=== PATIENT | female | born 1985 | race American Indian/Alaskan Native ===

== ENCOUNTER 2016-10-11 08:47 | Emergency (ER) | payer SELFPAY ==
[2016-10-11 09:49] VITALS: BP 126/86
--- NOTE | 2016-10-11 12:20 | Emergency Department Report ---
ED ENT HPI - General Chief complaint: Sore Throat Stated complaint: sore throat Time Seen by Provider: 10/11/16 11:52 Source: patient Mode of arrival: Ambulatory Limitations: No Limitations - History of Present Illness Initial comments: PT c/o sore throat x three days. PT also c/o R ear pain, tongue irritation and cough. PT also states she missed court today so she would like documentation that shows that she was sick. PT states she took tylenol this morning at 0200 without relief of symptoms. complaint: sore throat Onset/Timin -: Gradual, days(s) Location: R ear, tongue, throat Severity: severe Severity scale (0 -10): 10 Quality: constant Consistency: constant Improves with: none Worsens with: swallowing, eating, other (talking ) Associated Symptoms: fever, cough, pain with swallowing, sore throat. denies: discharge from ear, rhinorrhea - Related Data Previous Rx's Medication Instructions Recorded Last Taken Type Amoxicillin 500 mg PO BID #20 capsule 10/11/16 Unknown Rx Benzonatate [Tessalon Perles] 100 mg PO Q8HR PRN #12 capsule 10/11/16 Unknown Rx Ibuprofen [Motrin] 600 mg PO Q8H PRN #15 tablet 10/11/16 Unknown Rx Allergies Allergy/AdvReac Type Severity Reaction Status Date / Time No Known Allergies Allergy Verified 10/11/16 09:43 ED Dental HPI - General Chief complaint: Sore Throat Stated complaint: TONGUE SWOLLEN Time Seen by Provider: 10/11/16 11:52 Source: patient Mode of arrival: Ambulatory Limitations: No Limitations - Related Data Previous Rx's Medication Instructions Recorded Last Taken Type Amoxicillin 500 mg PO BID #20 capsule 10/11/16 Unknown Rx Benzonatate [Tessalon Perles] 100 mg PO Q8HR PRN #12 capsule 10/11/16 Unknown Rx Ibuprofen [Motrin] 600 mg PO Q8H PRN #15 tablet 10/11/16 Unknown Rx Allergies Allergy/AdvReac Type Severity Reaction Status Date / Time No Known Allergies Allergy Verified 10/11/16 09:43 ED Review of Systems ROS: Stated complaint: TONGUE SWOLLEN Other details as noted in HPI Comment: All other systems reviewed and negative Constitutional: chills, malaise. denies: fever ENT: throat pain Respiratory: cough. denies: SOB with exertion Gastrointestinal: nausea. denies: abdominal pain, vomiting, diarrhea Musculoskeletal: myalgia ED Past Medical Hx - Past Medical History Hx GERD: Yes Hx Asthma: Yes Additional medical history: Vaginal delivery x 3 - Surgical History Hx Cholecystectomy: Yes - Social History Smoking Status: Current Every Day Smoker Substance Use Type: None - Medications Home Medications: Home Medications Medication Instructions Recorded Confirmed Last Taken Type Amoxicillin 500 mg PO BID #20 capsule 10/11/16 Unknown Rx Benzonatate [Tessalon Perles] 100 mg PO Q8HR PRN #12 capsule 10/11/16 Unknown Rx Ibuprofen [Motrin] 600 mg PO Q8H PRN #15 tablet 10/11/16 Unknown Rx ED Physical Exam - General Limitations: No Limitations General appearance: alert, in no apparent distress - Head Head exam: Present: atraumatic, normocephalic, normal inspection - Eye Eye exam: Present: normal appearance. Absent: conjunctival injection - ENT ENT exam: Present: mucous membranes moist, normal external ear exam - Expanded ENT Exam Expanded TM/Canal exam: Erythema: Left TM, Loss of Landmarks: Left TM Mouth exam: Present: normal external inspection. Absent: drooling, trismus Throat exam: Positive: tonsillar erythema, tonsillomegaly, other (clear post nasal drainage. ). Negative: tonsillar exudate, R peritonsillar mass, L peritonsillar mass - Neck Neck exam: Present: normal inspection. Absent: tenderness - Respiratory Respiratory exam: Present: normal lung sounds bilaterally. Absent: respiratory distress, wheezes - Cardiovascular Cardiovascular Exam: Present: regular rate, normal rhythm, normal heart sounds - GI/Abdominal GI/Abdominal exam: Present: soft. Absent: tenderness, guarding, rebound - Extremities Exam Extremities exam: Present: normal inspection, full ROM - Back Exam Back exam: Present: normal inspection, full ROM. Absent: tenderness, CVA tenderness (R), CVA tenderness (L), muscle spasm - Neurological Exam Neurological exam: Present: alert, oriented X3 - Psychiatric Psychiatric exam: Present: normal affect, normal mood - Skin Skin exam: Present: warm, dry, intact ED Course Vital Signs 10/11/16 09:46 Temperature 98.3 F Pulse Rate 95 H Respiratory 17 Rate Blood Pressure 126/86 O2 Sat by Pulse 100 Oximetry - Reevaluation(s) Reevaluation #1: 04/03/17 12:23 PT aware of dx and plan of care. PT has no questions at this time. - Pulse Oximetry Interpretation Digit-Finger Initial Pulse Oximetry Readin Actions Taken: none ED Medical Decision Making - Differential Diagnosis strep phayrngitis, uri, om Critical care attestation.: If time is entered above; I have spent that time in minutes in the direct care of this critically ill patient, excluding procedure time. ED Disposition Clinical Impression: Otalgia of right ear, Left otitis media with effusion Pharyngitis Qualifiers: Pharyngitis/tonsillitis etiology: unspecified etiology Qualified Code(s): J02.9 - Acute pharyngitis, unspecified Disposition: DISCHARGED TO HOME OR SELFCARE Is pt being admited?: No Does the pt Need Aspirin: No Condition: Stable Instructions: Pharyngitis (ED), Tonsillitis (ED) Prescriptions: Amoxicillin 500 mg PO BID #20 capsule Benzonatate [Tessalon Perles] 100 mg PO Q8HR PRN #12 capsule PRN Reason: Cough Ibuprofen [Motrin] 600 mg PO Q8H PRN #15 tablet PRN Reason: Pain Referrals: PRIMARY CARE, [Primary Care Provider] - 3-5 Days Forms: Work/School Release Form(ED) Time of Disposition: 12:28
== END 2016-10-11 12:30 | disposition home or self-care (01) ==
LOC: ED 08:47
DX: H65.92 Unspecified nonsuppurative otitis media, left ear (principal); H92.01 Otalgia, right ear; J02.9 Acute pharyngitis, unspecified; K21.9 Gastro-esophageal reflux disease without esophagitis; J45.909 Unspecified asthma, uncomplicated; F17.200 Nicotine dependence, unspecified, uncomplicated
CPT/HCPCS: 99282

== ENCOUNTER 2016-11-22 08:13 | Emergency (ER) | payer SELFPAY ==
[2016-11-22 09:12] LABS: Bacteria,Urine 1+ /HPF (Negative); Bilirubin,Urine NEG (Negative); Blood,Urine NEG (Negative); Ketones,Urine TR mg/dL (Negative); Leukocyte Esterase,Urine NEG (Negative); Mucus,Urine 3+ /HPF; Nitrite,Urine NEG (Negative)
[2016-11-22] MEDS ORDERED: MOTRIN PO ONE (13:37)
--- NOTE | 2016-11-22 14:49 | Emergency Department Report ---
ED General Adult HPI - General Chief complaint: Urogenital-Female Stated complaint: PELVIC PAIN Time Seen by Provider: 11/22/16 13:35 Source: patient Mode of arrival: Ambulatory Limitations: No Limitations - History of Present Illness Initial comments: 31-year-old female presents to the ED complaining about pelvic pain currently on her menstrual cycle. Patient also states that she has having a vaginal odor but denies concern for STD such as chlamydia or gonorrhea. Patient denies fever , nausea, vomiting, diarrhea. Severity scale (0 -10): 7 - Related Data Previous Rx's Medication Instructions Recorded Last Taken Type Amoxicillin 500 mg PO BID #20 capsule 10/11/16 Unknown Rx Benzonatate [Tessalon Perles] 100 mg PO Q8HR PRN #12 capsule 10/11/16 Unknown Rx Ibuprofen [Motrin] 600 mg PO Q8H PRN #15 tablet 10/11/16 Unknown Rx Naproxen [Naprosyn TAB] 500 mg PO BID #30 tablet 11/22/16 Unknown Rx metroNIDAZOLE [Flagyl TAB] 500 mg PO Q12HR #14 tab 11/22/16 Unknown Rx Allergies Allergy/AdvReac Type Severity Reaction Status Date / Time No Known Allergies Allergy Verified 10/11/16 09:43 ED Review of Systems ROS: Stated complaint: PELVIC PAIN Other details as noted in HPI Constitutional: denies: chills, fever Eyes: denies: eye pain, eye discharge, vision change ENT: denies: ear pain, throat pain Respiratory: denies: cough, shortness of breath, wheezing Cardiovascular: denies: chest pain, palpitations Endocrine: no symptoms reported Gastrointestinal: denies: abdominal pain, nausea, diarrhea Genitourinary: discharge, other (pelvic pain). denies: urgency, dysuria Musculoskeletal: denies: back pain, joint swelling, arthralgia Skin: denies: rash, lesions Neurological: denies: headache, weakness, paresthesias Psychiatric: denies: anxiety, depression Hematological/Lymphatic: denies: easy bleeding, easy bruising ED Past Medical Hx - Past Medical History Hx GERD: Yes Hx Asthma: Yes Additional medical history: Vaginal delivery x 3 - Surgical History Hx Cholecystectomy: Yes - Social History Smoking Status: Current Every Day Smoker Substance Use Type: None - Medications Home Medications: Home Medications Medication Instructions Recorded Confirmed Last Taken Type Amoxicillin 500 mg PO BID #20 capsule 10/11/16 Unknown Rx Benzonatate [Tessalon Perles] 100 mg PO Q8HR PRN #12 capsule 10/11/16 Unknown Rx Ibuprofen [Motrin] 600 mg PO Q8H PRN #15 tablet 10/11/16 Unknown Rx Naproxen [Naprosyn TAB] 500 mg PO BID #30 tablet 11/22/16 Unknown Rx metroNIDAZOLE [Flagyl TAB] 500 mg PO Q12HR #14 tab 11/22/16 Unknown Rx ED Physical Exam - General Limitations: No Limitations General appearance: alert, in no apparent distress - Head Head exam: Present: atraumatic, normocephalic - Eye Eye exam: Present: normal appearance - ENT ENT exam: Present: mucous membranes moist - Neck Neck exam: Present: normal inspection - Respiratory Respiratory exam: Present: normal lung sounds bilaterally. Absent: respiratory distress - Cardiovascular Cardiovascular Exam: Present: regular rate, normal rhythm. Absent: systolic murmur, diastolic murmur, rubs, gallop - GI/Abdominal GI/Abdominal exam: Present: soft, normal bowel sounds. Absent: distended, tenderness, guarding - Speculum exam: Present: normal speculum exam. Absent: erythema, vaginal discharge, cervical discharge, vaginal bleeding, foreign body Bi-manual exam: Present: adnexal tenderness. Absent: cervical motion tendernes , adnexal mass, uterine enlargement - Extremities Exam Extremities exam: Present: normal inspection - Back Exam Back exam: Present: normal inspection - Neurological Exam Neurological exam: Present: alert, oriented X3 - Psychiatric Psychiatric exam: Present: normal affect, normal mood - Skin Skin exam: Present: warm, dry, intact, normal color. Absent: rash ED Course Vital Signs 11/22/16 11/22/16 08:35 14:41 Temperature 98.2 F Pulse Rate 95 H Respiratory 17 18 Rate Blood Pressure 119/76 O2 Sat by Pulse 98 Oximetry ED Medical Decision Making - Lab Data Vital Signs 11/22/16 11/22/16 08:35 14:41 Temperature 98.2 F Pulse Rate 95 H Respiratory 17 18 Rate Blood Pressure 119/76 O2 Sat by Pulse 98 Oximetry Laboratory Results - last 24 hr 11/22/16 11/22/16 08:44 08:52 HCG, Qual Negative Urine Color Yellow Urine Turbidity Clear Urine pH 5.0 Ur Specific [place] 1.031 H Urine Protein 30 mg/dl Urine Glucose (UA) Neg Urine Ketones Tr Urine Blood Neg Urine Nitrite Neg Ur Reducing Substances Not Reportable Urine Bilirubin Neg Urine Ictotest Not Reportable Urine Urobilinogen 2.0 Ur Leukocyte Esterase Neg Urine WBC (Auto) 1.0 Urine RBC (Auto) 1.0 U Epithel Cells (Auto) 5.0 Urine Bacteria (Auto) 1+ Urine Mucus 3+ Urine HCG, Qual Negative - Medical Decision Making Patient is resting comfortably at this time. States that she has no concern for chlamydia or gonorrhea in which not to have medication here. Her pelvic exam was unremarkable and her urine is clean. 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 ED Disposition Clinical Impression: Dysmenorrhea, Vaginal odor, Vaginal discomfort Disposition: DISCHARGED TO HOME OR SELFCARE Is pt being admited?: No Does the pt Need Aspirin: No Condition: Good Instructions: Dysmenorrhea (ED) Additional Instructions: take medication as prescribed and follow up with your obgyn. Prescriptions: metroNIDAZOLE [Flagyl TAB] 500 mg PO Q12HR #14 tab Naproxen [Naprosyn TAB] 500 mg PO BID #30 tablet Referrals: PRIMARY CARE, [Primary Care Provider] - 3-5 Days Forms: Work/School Release Form(ED) Time of Disposition: 14:48
[2016-11-22 15:11] VITALS: BP 118/76
== END 2016-11-22 15:11 | disposition home or self-care (01) ==
LOC: ED 08:13
DX: N94.6 Dysmenorrhea, unspecified (principal); K21.9 Gastro-esophageal reflux disease without esophagitis; J45.909 Unspecified asthma, uncomplicated; F17.200 Nicotine dependence, unspecified, uncomplicated
CPT/HCPCS: 36415; 81001; 81025; 84703; 87210; 87591; 99284

== ENCOUNTER 2017-03-12 02:59 | Emergency (ER) | payer SELFPAY ==
[2017-03-12 03:38] LABS: Basophils % (Auto) 0.5 % (0.0-1.8); Eosinophils % (Auto) 0.5 % (0.0-4.3); Hematocrit 37.4 % (30.3-42.9); Hemoglobin 11.8 gm/dl (10.1-14.3); Mean Corpuscular HGB Conc 32 % (30-34); Mean Corpuscular Volume 72 fl (79-97); Platelet Count 247 K/mm3 (140-440); Red Blood Count 5.21 M/mm3 (3.65-5.03); Red Cell Distribution Width 16.8 % (13.2-15.2); White Blood Count 10.4 K/mm3 (4.5-11.0)
[2017-03-12 04:01] LABS: Mean Corpuscular Hemoglobin 23 pg (28-32)
[2017-03-12 04:08] LABS: Alanine Aminotransferase 6 units/L (7-56); Albumin 4.3 g/dL (3.9-5); Albumin/Globulin Ratio 1.3 %; Alkaline Phosphatase 82 units/L (35-129); Anion Gap 17 mmol/L; BUN/Creatinine Ratio 8.75; Blood Urea Nitrogen 7 mg/dL (7-17); Calcium 9.3 mg/dL (8.4-10.2); Carbon Dioxide 26 mmol/L (22-30); Chloride 103.5 mmol/L (98-107); Glucose 93 mg/dL (65-100); Lipase 29 units/L (13-60); Potassium 3.1 mmol/L (3.6-5.0); Sodium 143 mmol/L (137-145); Total Protein 7.6 g/dL (6.3-8.2)
[2017-03-12 04:15] LABS: Bacteria,Urine 3+ /HPF (Negative); Bilirubin,Urine NEG (Negative); Blood,Urine LG (Negative); Ketones,Urine NEG (Negative); Leukocyte Esterase,Urine LG (Negative); Mucus,Urine 1+ /HPF; Nitrite,Urine POS (Negative); Urobilinogen,Urine < 2.0 mg/dL (<2.0)
--- NOTE | 2017-03-12 04:24 | Ultrasound Report ---
FINAL REPORT PROCEDURE: US OB \T\lt; = 14 WEEKS FETUS TECHNIQUE: Real-time transabdominal and transvaginal sonography of the uterus, placenta, amniotic fluid, adnexa, and fetus was performed with image documentation. Measurements were obtained to determine age/size. M-mode Doppler was used to document heartbeat. CPT 65060 and 21886 HISTORY: preg, abd pain COMPARISON: No prior studies are available for comparison. FINDINGS: The uterus size is 10.2 x 6 x 6.4 centimeters. The endometrium is slightly thickened at 13 millimeters. There is no evidence of a gestational sac. The right ovary size is 3.4 x 2.4 x 2 centimeters. There is a dominant cyst on the right ovary this measures 19 millimeters. The left ovary is not visualized. There is a fibroid measuring 3.4 centimeters identified in the lateral aspect of the uterus. The findings may indicate multiple etiologies including early or failure. Ectopic is not excluded on the basis of this study. Follow-up examination should include serial beta HCG levels and repeat ultrasound according to clinical findings. IMPRESSION: There is no evidence of a gestational sac on this study. The findings may indicate multiple etiologies including early or failure. Followup studies should be entertained and could include serial beta HCG levels and perhaps repeat ultrasound.
[2017-03-12 04:33] LABS: RBC,Urine > 182.0 /HPF (0.0-6.0); WBC,Urine > 182.0 /HPF (0.0-6.0)
--- NOTE | 2017-03-12 04:38 | Ultrasound Report ---
FINAL REPORT PROCEDURE: Obstetrical ultrasound, transabdominal and transvaginal TECHNIQUE: Real-time transabdominal and transvaginal sonography of the uterus, placenta, amniotic fluid, adnexa, and fetus was performed with image documentation. Measurements were obtained to determine age/size. M-mode Doppler was used to document heartbeat. CPT 52722 and 68777 HISTORY: preg, abd pain COMPARISON: No prior studies are available for comparison. FINDINGS: The uterus size is 10.2 x 6 x 6.4 centimeters. The endometrium is slightly thickened at 13 millimeters. There is no evidence of a gestational sac. The right ovary size is 3.4 x 2.4 x 2 centimeters. There is a dominant cyst on the right ovary this measures 19 millimeters. The left ovary is not visualized. There is a fibroid measuring 3.4 centimeters identified in the lateral aspect of the uterus. The findings may indicate multiple etiologies including early or failure. Ectopic is not excluded on the basis of this study. Follow-up examination should include serial beta HCG levels and repeat ultrasound according to clinical findings. IMPRESSION: There is no idence of a gestational sac on this study. The findings may indicate multiple etiologies including early or failure. Followup studies should be entertained and could include serial beta HCG levels and perhaps repeat ultrasound.
[2017-03-12] MEDS ORDERED: MACROBID PO ONE (06:15)
[2017-03-12] MEDS ORDERED: K-DUR PO ONE (06:16)
[2017-03-12] MEDS ORDERED: TORADOL IM ONE (06:25)
[2017-03-12] MEDS ORDERED: ULTRAM PO ONE (06:25)
--- NOTE | 2017-03-12 07:16 | Emergency Department Report ---
ED Abdominal Pain HPI - General Chief Complaint: Abdominal Pain Stated Complaint: ABD PAIN/12 WKS PREG Time Seen by Provider: 03/12/17 06:14 Source: patient Mode of arrival: Ambulatory Limitations: No Limitations - History of Present Illness Initial Comments: 32-year-old female with a past medical history of asthma, GERD, and previous cholecystectomy presents to the hospital with complaints of abdominal pain since last night. Pain is the right lower quadrant, stabbing and cramping, intermittent and caused a palpation and movement. Pain is worse with palpation and movement. No alleviating factors reported. Positive associated dysuria, increased frequency, pelvic pressure with urination, and right flank pain. No reports of fever, nausea, vomiting, or vaginal bleeding. Patient reports she passed a mucous plug March 04 and she has been bleeding intermittently febrile her . Positive home test 2-1/2 weeks ago however, patient has not initiated follow-up had an ultrasound confirming . Patient states she is also concerned that she might have a bacterial infection and need Flagyl Severity scale (0 -10): 7 - Related Data Previous Rx's Medication Instructions Recorded Last Taken Type Ibuprofen [Motrin] 800 mg PO Q8HR PRN #30 tablet 03/12/17 Unknown Rx Nitrofurantoin [place]/M-Cryst 100 mg PO Q12HR #14 capsule 03/12/17 Unknown Rx [Macrobid CAP] Ondansetron [Zofran Odt] 4 mg PO Q8HR #20 tab.rapdis 03/12/17 Unknown Rx traMADol [Ultram 50 MG tab] 50 mg PO Q6HR PRN #20 tablet 03/12/17 Unknown Rx Allergies Allergy/AdvReac Type Severity Reaction Status Date / Time No Known Allergies Allergy Verified 03/12/17 04:23 ED Review of Systems ROS: Stated complaint: ABD PAIN/12 WKS PREG Other details as noted in HPI Comment: All other systems reviewed and negative Other: Constitutional: No fevers chills Eyes: No eye pain visual changes ENT: No ear pain or throat pain Neck: Denies pain Respiratory: Denies cough wheezing shortness of breath Cardiovascular: Denies chest pain, palpitations, syncope GI: As per HPI : Denies as per HPI Musculoskeletal: Right flank Skin: Denies rash, lesions, erythema Neurologic: Denies headache, numbness, weakness Psychiatric: Denies suicidal ideation, hallucinations ED Past Medical Hx - Past Medical History Previous Medical History?: Yes Hx GERD: Yes Hx Asthma: Yes Additional medical history: Vaginal delivery x 4 - Surgical History Past Surgical History?: Yes Hx Cholecystectomy: Yes - Social History Smoking Status: Never Smoker Substance Use Type: None - Medications Home Medications: Home Medications Medication Instructions Recorded Confirmed Last Taken Type Ibuprofen [Motrin] 800 mg PO Q8HR PRN #30 tablet 03/12/17 Unknown Rx Nitrofurantoin [place]/M-Cryst 100 mg PO Q12HR #14 capsule 03/12/17 Unknown Rx [Macrobid CAP] Ondansetron [Zofran Odt] 4 mg PO Q8HR #20 tab.rapdis 03/12/17 Unknown Rx traMADol [Ultram 50 MG tab] 50 mg PO Q6HR PRN #20 tablet 03/12/17 Unknown Rx ED Physical Exam - General Limitations: No Limitations - Other Other exam information: General: No limitations, patient is alert in no acute distress Head exam: Atraumatic, normocephalic Eyes exam: Normal appearance ENT: Moist mucous membrane, normal oropharynx Neck exam: Normal inspection, full range of motion, no meningismus nontender Respiratory exam: Clear to auscultation bilateral, no wheezes, rales, crackles Cardiovascular: Normal rate and rhythm, normal heart sounds Abdomen: Soft, nondistended, right lower quadrant and suprapubic tenderness,, with normal bowel sounds, no rebound, or guarding : No CMT or adnexal tenderness, no vaginal discharge Extremity: Full range of motion normal inspection no deformity Back: Normal Inspection, full range of motion, my flank tenderness Neurologic: Alert, oriented x3, cranial nerves intact, no motor or sensory deficit Psychiatric: normal affect, normal mood Skin: Warm, dry, intact ED Course Vital Signs 03/12/17 03/12/17 03/12/17 03:08 03:35 06:47 Temperature 98.4 F 98.4 F Pulse Rate 100 H 88 85 Respiratory 20 18 20 Rate Blood Pressure 129/83 Blood Pressure 116/77 115/70 [Left] O2 Sat by Pulse 100 100 Oximetry 03/12/17 07:15 Temperature 98.4 F Pulse Rate 85 Respiratory 16 Rate Blood Pressure Blood Pressure 107/71 [Left] O2 Sat by Pulse Oximetry - Reevaluation(s) Reevaluation #1: 03/12/17 07:17 Meds given Pain meds: Tramadol and Toradol UTI: Macrobid Hypokalemia: and KCl 40 mEq by mouth ED Medical Decision Making - Lab Data Result diagrams: 03/12/17 03:29 03/12/17 03:29 Lab Results 03/12/17 03/12/17 03/12/17 Range/Units 03:29 03:29 03:29 WBC 10.4 (4.5-11.0) K/mm3 RBC 5.21 H (3.65-5.03) M/mm3 Hgb 11.8 (10.1-14.3) gm/dl Hct 37.4 (30.3-42.9) % MCV 72 L (79-97) fl MCH 23 L (28-32) pg MCHC 32 (30-34) % RDW 16.8 H (13.2-15.2) % Plt Count 247 (140-440) K/mm3 Lymph % (Auto) 17.3 (13.4-35.0) % [place] % (Auto) 6.7 (0.0-7.3) % Eos % (Auto) 0.5 (0.0-4.3) % Baso % (Auto) 0.5 (0.0-1.8) % Lymph # 1.8 (1.2-5.4) K/mm3 [place] # 0.7 (0.0-0.8) K/mm3 Eos # 0.1 (0.0-0.4) K/mm3 Baso # 0.0 (0.0-0.1) K/mm3 Seg Neutrophils % 75.0 H (40.0-70.0) % Seg Neutrophils # 7.8 H (1.8-7.7) K/mm3 Sodium 143 (137-145) mmol/L Potassium 3.1 L (3.6-5.0) mmol/L Chloride 103.5 (98-107) mmol/L Carbon Dioxide 26 (22-30) mmol/L Anion Gap 17 mmol/L BUN 7 (7-17) mg/dL Creatinine 0.8 (0.7-1.2) mg/dL Estimated GFR > 60 ml/min BUN/Creatinine Ratio 8.75 % Glucose 93 (65-100) mg/dL Calcium 9.3 (8.4-10.2) mg/dL Total Bilirubin 0.20 (0.1-1.2) mg/dL AST 11 (5-40) units/L ALT 6 L (7-56) units/L Alkaline Phosphatase 82 (35-129) units/L Total Protein 7.6 (6.3-8.2) g/dL Albumin 4.3 (3.9-5) g/dL Albumin/Globulin Ratio 1.3 % Lipase 29 (13-60) units/L HCG, Quant < 2 (0-4) mIU/mL Urine Color (Yellow) Urine Turbidity (Clear) Urine pH (5.0-7.0) Ur Specific [place] (1.003-1.030) Urine Protein (Negative) mg/dL Urine Glucose (UA) (Negative) mg/dL Urine Ketones (Negative) mg/dL Urine Blood (Negative) Urine Nitrite (Negative) Urine Bilirubin (Negative) Urine Urobilinogen (<2.0) mg/dL Ur Leukocyte Esterase (Negative) Urine WBC (Auto) (0.0-6.0) /HPF Urine RBC (Auto) (0.0-6.0) /HPF U Epithel Cells (Auto) (0-13.0) /HPF Urine Bacteria (Auto) (Negative) /HPF Urine WBC Clumps /HPF Ur Transition Epith Cell /HPF Urine Mucus /HPF 03/12/17 Range/Units 03:35 WBC (4.5-11.0) K/mm3 RBC (3.65-5.03) M/mm3 Hgb (10.1-14.3) gm/dl Hct (30.3-42.9) % MCV (79-97) fl MCH (28-32) pg MCHC (30-34) % RDW (13.2-15.2) % Plt Count (140-440) K/mm3 Lymph % (Auto) (13.4-35.0) % [place] % (Auto) (0.0-7.3) % Eos % (Auto) (0.0-4.3) % Baso % (Auto) (0.0-1.8) % Lymph # (1.2-5.4) K/mm3 [place] # (0.0-0.8) K/mm3 Eos # (0.0-0.4) K/mm3 Baso # (0.0-0.1) K/mm3 Seg Neutrophils % (40.0-70.0) % Seg Neutrophils # (1.8-7.7) K/mm3 Sodium (137-145) mmol/L Potassium (3.6-5.0) mmol/L Chloride (98-107) mmol/L Carbon Dioxide (22-30) mmol/L Anion Gap mmol/L BUN (7-17) mg/dL Creatinine (0.7-1.2) mg/dL Estimated GFR ml/min BUN/Creatinine Ratio % Glucose (65-100) mg/dL Calcium (8.4-10.2) mg/dL Total Bilirubin (0.1-1.2) mg/dL AST (5-40) units/L ALT (7-56) units/L Alkaline Phosphatase (35-129) units/L Total Protein (6.3-8.2) g/dL Albumin (3.9-5) g/dL Albumin/Globulin Ratio % Lipase (13-60) units/L HCG, Quant (0-4) mIU/mL Urine Color Yellow (Yellow) Urine Turbidity Cloudy (Clear) Urine pH 7.0 (5.0-7.0) Ur Specific [place] 1.016 (1.003-1.030) Urine Protein 100 mg/dl (Negative) mg/dL Urine Glucose (UA) Neg (Negative) mg/dL Urine Ketones Neg (Negative) mg/dL Urine Blood Lg (Negative) Urine Nitrite Pos (Negative) Urine Bilirubin Neg (Negative) Urine Urobilinogen < 2.0 (<2.0) mg/dL Ur Leukocyte Esterase Lg (Negative) Urine WBC (Auto) > 182.0 H (0.0-6.0) /HPF Urine RBC (Auto) > 182.0 (0.0-6.0) /HPF U Epithel Cells (Auto) 19.0 H (0-13.0) /HPF Urine Bacteria (Auto) 3+ (Negative) /HPF Urine WBC Clumps 3+ /HPF Ur Transition Epith Cell 3 /HPF Urine Mucus 1+ /HPF wet prep neg, gc chl pending - Radiology Data Radiology results: report reviewed (transvaginal/pelvic ultrasound: Uterine fibroid, no IUP) - Medical Decision Making Patient had hypokalemia supplemented. Potassium. Initiated antibiotics for UTI and pain. Plan to discharge with outpatient follow-up and treatment The patient continues to state she thinks she has a vaginal bacterial infection Requiring. Flagyl Informed that findings were negative. ANIMAL HUSBANDRY PROFESSOR follow-up will be recommended - Differential Diagnosis miscarriage, appendicitis, diverticulitis, UTI, vaginitis Critical Care Time: No Critical care attestation.: If time is entered above; I have spent that time in minutes in the direct care of this critically ill patient, excluding procedure time. ED Disposition Clinical Impression: UTI (urinary tract infection), Uterine fibroid, Hypokalemia Disposition: TO HOME OR SELFCARE Is pt being admited?: No Does the pt Need Aspirin: No Condition: Stable Instructions: Uterine Fibroids (ED), Urinary Tract Infection in Women (ED), Hypokalemia (ED) Additional Instructions: Take the Medications as prescribed. Follow-up with the ANIMAL HUSBANDRY PROFESSOR doctor provided. Return if symptoms worsen as indicated by her discharge instructions. Prescriptions: Ibuprofen [Motrin] 800 mg PO Q8HR PRN #30 tablet PRN Reason: Pain Nitrofurantoin [place]/M-Cryst [Macrobid CAP] 100 mg PO Q12HR #14 capsule Ondansetron [Zofran Odt] 4 mg PO Q8HR #20 tab.rapdis traMADol [Ultram 50 MG tab] 50 mg PO Q6HR PRN #20 tablet PRN Reason: Pain Referrals: BRUCE MORALES MD [Staff Physician] - 3-5 Days Time of Disposition: 08:41
[2017-03-12 08:27] VITALS: BP 107/71
== END 2017-03-12 10:00 | disposition home or self-care (01) ==
LOC: ED 02:59
DX: O23.41 Unspecified infection of urinary tract in pregnancy, first trimester (principal); O34.11 Maternal care for benign tumor of corpus uteri, first trimester; J45.909 Unspecified asthma, uncomplicated; K21.9 Gastro-esophageal reflux disease without esophagitis; Z3A.12 12 weeks gestation of pregnancy
CPT/HCPCS: 36415; 76801; 76817; 80053; 81001; 83690; 84702; 85025; 87076; 87086; 87186; 87210; 87591; 96372; 99284; J1885

== ENCOUNTER 2017-09-19 13:21 | Emergency (ER) | payer SELFPAY ==
[2017-09-19] MEDS ORDERED: TYLENOL PO ONE (16:42)
--- NOTE | 2017-09-19 16:46 | Emergency Department Report ---
Chief Complaint: Chest Pain Stated Complaint: CHEST PAIN/ Time Seen by Provider: 09/19/17 16:39 - HPI History of Present Illness: The patient is a 32-year-old Female LMP 8 weeks, who presents for evaluation of abdominal pain VD, & VB. The patient reports 1 week of lower abdominal cramping, thick white vaginal discharge, and vaginal bleeding. The patient denies fever, chills, night sweats, nausea, vomiting, diarrhea, blood in the stool, dark tarry stool, dysuria, hematuria, flank pain, inability to pass flatus. - Exam Vital Signs: Vital Signs 09/19/17 13:40 Temperature 98 F Pulse Rate 89 Respiratory 18 Rate Blood Pressure 118/62 O2 Sat by Pulse 96 Oximetry MSE screening note: Focused history and physical exam performed. Due to findings the following was ordered: ED Disposition for MSE Condition: Stable
[2017-09-19 17:04] LABS: Basophils % (Auto) 0.5 % (0.0-1.8); Eosinophils # (Auto) 0.1 K/mm3 (0.0-0.4); Eosinophils % (Auto) 1.4 % (0.0-4.3); Hematocrit 33.4 % (30.3-42.9); Hemoglobin 10.3 gm/dl (10.1-14.3); Lymphocytes # (Auto) 1.5 K/mm3 (1.2-5.4); Lymphocytes % (Auto) 20.2 % (13.4-35.0); Mean Corpuscular HGB Conc 31 % (30-34); Monocytes # (Auto) 0.4 K/mm3 (0.0-0.8); Monocytes % (Auto) 5.7 % (0.0-7.3); Platelet Count 278 K/mm3 (140-440); Red Cell Distribution Width 17.4 % (13.2-15.2)
[2017-09-19 17:05] LABS: Mean Corpuscular Hemoglobin 21 pg (28-32); Mean Corpuscular Volume 67 fl (79-97)
[2017-09-19 17:17] LABS: BUN/Creatinine Ratio 18; Blood Urea Nitrogen 11 mg/dL (7-17); Calcium 8.8 mg/dL (8.4-10.2); Hemolysis Index 1
--- NOTE | 2017-09-19 17:33 | Emergency Department Report ---
ED Female HPI - General Chief complaint: Chest Pain Stated complaint: CHEST PAIN/ Time Seen by Provider: 09/19/17 16:39 Source: patient, family, EMS Mode of arrival: Ambulatory Limitations: No Limitations - History of Present Illness Initial comments: The patient is a 32-year-old Female LMP 8 weeks, who presents for evaluation of abdominal pain VD, & VB. The patient reports 1 week of lower abdominal cramping, thick white vaginal discharge, and vaginal bleeding. The patient denies fever, chills, night sweats, nausea, vomiting, diarrhea, blood in the stool, dark tarry stool, dysuria, hematuria, flank pain, inability to pass flatus. Patient's having generalized aches and pain 8/10 achy. No medication taken. 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 She said last week she passed lots of clots and then it stopped and now she is having small amount of bleeding. Patient denies any chest pain she just is aching all over and cramping in her pelvic area. MD Complaint: vaginal bleeding, vaginal discharge, pelvic pain, possible STD Onset/Timin -: week(s) Location: suprapubic Radiation: non-radiating Severity: severe Severity scale (0 -10): 8 Quality: cramping Consistency: intermittent Improves with: none Worsens with: none Are you Now?: Yes (reports 8 weeks ) Associated Symptoms: vaginal discharge, vaginal bleeding, abdominal pain, hematuria. denies: nausea/vomiting, fever/chills, headaches, loss of appetite, dysuria, rash, seizure, shortness of breath, syncope, weakness - Related Data Sexually active: Yes Previous Rx's Medication Instructions Recorded Last Taken Type Nitrofurantoin Long/M-Cryst 100 mg PO Q12HR #14 capsule 03/12/17 Unknown Rx [Macrobid CAP] Ondansetron [Zofran Odt] 4 mg PO Q8HR PRN #20 tab.rapdis 03/12/17 Unknown Rx traMADol [Ultram 50 MG tab] 50 mg PO Q6HR PRN #20 tablet 03/12/17 Unknown Rx Fluconazole [Diflucan TAB] 150 mg PO ONCE PRN 1 Days #1 tablet 09/19/17 Unknown Rx Ibuprofen [Motrin 800 MG tab] 800 mg PO Q8HR PRN #12 tablet 09/19/17 Unknown Rx Sulfamethoxazole/Trimethoprim 1 each PO BID 7 Days #14 tablet 09/19/17 Unknown Rx [Bactrim DS TAB] metroNIDAZOLE [Flagyl] 500 mg PO Q12HR 7 Days #14 tab 09/19/17 Unknown Rx Allergies Allergy/AdvReac Type Severity Reaction Status Date / Time No Known Allergies Allergy Verified 03/12/17 04:23 ED Review of Systems ROS: Stated complaint: CHEST PAIN/ Other details as noted in HPI Comment: All other systems reviewed and negative Constitutional: no symptoms reported Eyes: denies: eye pain ENT: denies: throat pain Respiratory: no symptoms reported Cardiovascular: denies: chest pain, palpitations, dyspnea on exertion, edema, syncope, paroxysmal nocturnal dyspnea Gastrointestinal: abdominal pain. denies: nausea, vomiting, diarrhea, constipation Genitourinary: hematuria, discharge, abnormal menses. denies: dysuria, frequency Musculoskeletal: denies: back pain, joint swelling, arthralgia, myalgia Skin: denies: rash Neurological: denies: headache ED Past Medical Hx - Past Medical History Previous Medical History?: Yes Hx GERD: Yes Hx Asthma: Yes Additional medical history: Vaginal delivery x 4 - Surgical History Past Surgical History?: Yes Hx Cholecystectomy: Yes - Family History Family history: hypertension - Social History Smoking Status: Current Every Day Smoker Substance Use Type: None - Medications Home Medications: Home Medications Medication Instructions Recorded Confirmed Last Taken Type Nitrofurantoin Long/M-Cryst 100 mg PO Q12HR #14 capsule 03/12/17 Unknown Rx [Macrobid CAP] Ondansetron [Zofran Odt] 4 mg PO Q8HR PRN #20 tab.rapdis 03/12/17 Unknown Rx traMADol [Ultram 50 MG tab] 50 mg PO Q6HR PRN #20 tablet 03/12/17 Unknown Rx Fluconazole [Diflucan TAB] 150 mg PO ONCE PRN 1 Days #1 tablet 09/19/17 Unknown Rx Ibuprofen [Motrin 800 MG tab] 800 mg PO Q8HR PRN #12 tablet 09/19/17 Unknown Rx Sulfamethoxazole/Trimethoprim 1 each PO BID 7 Days #14 tablet 09/19/17 Unknown Rx [Bactrim DS TAB] metroNIDAZOLE [Flagyl] 500 mg PO Q12HR 7 Days #14 tab 09/19/17 Unknown Rx ED Physical Exam - General Limitations: No Limitations General appearance: alert, in no apparent distress - Head Head exam: Present: atraumatic, normocephalic, normal inspection - Eye Eye exam: Present: normal appearance, PERRL. Absent: nystagmus, periorbital swelling, periorbital tenderness Pupils: Present: normal accommodation - ENT ENT exam: Present: normal exam, normal orophraynx, mucous membranes moist ED Course Vital Signs 09/19/17 09/19/17 13:40 17:51 Temperature 98 F Pulse Rate 89 Respiratory 18 16 Rate Blood Pressure 118/62 O2 Sat by Pulse 96 Oximetry - Reevaluation(s) Reevaluation #1: 09/19/17 20:37 Rocephin 1 g IM to cover gonorrhea and urinary tract infection and Zithromax 1 g by mouth to cover chlamydia. Patient chose to be treated before test resulted. She also has a urinary tract infection. HCG less than 2 and ultrasound shows no IUP but positive fibroid Reevaluation #2: 09/19/17 21:50 Patient receive Rocephin 1 g IM for coverage of gonorrhea and UTI, azithromycin and 1 g by mouth for chlamydia. ED Medical Decision Making - Lab Data Result diagrams: 09/19/17 16:48 09/19/17 16:48 Lab Results 09/19/17 09/19/17 09/19/17 Range/Units 16:48 16:48 16:48 WBC 7.5 (4.5-11.0) K/mm3 RBC 5.00 (3.65-5.03) M/mm3 Hgb 10.3 (10.1-14.3) gm/dl Hct 33.4 (30.3-42.9) % MCV 67 L (79-97) fl MCH 21 L (28-32) pg MCHC 31 (30-34) % RDW 17.4 H (13.2-15.2) % Plt Count 278 (140-440) K/mm3 Lymph % (Auto) 20.2 (13.4-35.0) % Long % (Auto) 5.7 (0.0-7.3) % Eos % (Auto) 1.4 (0.0-4.3) % Baso % (Auto) 0.5 (0.0-1.8) % Lymph # 1.5 (1.2-5.4) K/mm3 Long # 0.4 (0.0-0.8) K/mm3 Eos # 0.1 (0.0-0.4) K/mm3 Baso # 0.0 (0.0-0.1) K/mm3 Seg Neutrophils % 72.2 H (40.0-70.0) % Seg Neutrophils # 5.4 (1.8-7.7) K/mm3 Sodium 139 (137-145) mmol/L Potassium 3.7 (3.6-5.0) mmol/L Chloride 101.2 (98-107) mmol/L Carbon Dioxide 25 (22-30) mmol/L Anion Gap 17 mmol/L BUN 11 (7-17) mg/dL Creatinine 0.6 L (0.7-1.2) mg/dL Estimated GFR > 60 ml/min BUN/Creatinine Ratio 18 % Glucose 95 (65-100) mg/dL Calcium 8.8 (8.4-10.2) mg/dL HCG, Quant < 2 (0-4) mIU/mL Urine Color (Yellow) Urine Turbidity (Clear) Urine pH (5.0-7.0) Ur Specific [place] (1.003-1.030) Urine Protein (Negative) mg/dL Urine Glucose (UA) (Negative) mg/dL Urine Ketones (Negative) mg/dL Urine Blood (Negative) Urine Nitrite (Negative) Urine Bilirubin (Negative) Urine Urobilinogen (<2.0) mg/dL Ur Leukocyte Esterase (Negative) Urine WBC (Auto) (0.0-6.0) /HPF Urine RBC (Auto) (0.0-6.0) /HPF U Epithel Cells (Auto) (0-13.0) /HPF Urine Bacteria (Auto) (Negative) /HPF Amorphous Crystals Urine Mucus /HPF Blood Type Ord Rhogam Gestat Weeks WEEKS 09/19/17 09/19/17 Range/Units 16:48 17:09 WBC (4.5-11.0) K/mm3 RBC (3.65-5.03) M/mm3 Hgb (10.1-14.3) gm/dl Hct (30.3-42.9) % MCV (79-97) fl MCH (28-32) pg MCHC (30-34) % RDW (13.2-15.2) % Plt Count (140-440) K/mm3 Lymph % (Auto) (13.4-35.0) % Long % (Auto) (0.0-7.3) % Eos % (Auto) (0.0-4.3) % Baso % (Auto) (0.0-1.8) % Lymph # (1.2-5.4) K/mm3 Long # (0.0-0.8) K/mm3 Eos # (0.0-0.4) K/mm3 Baso # (0.0-0.1) K/mm3 Seg Neutrophils % (40.0-70.0) % Seg Neutrophils # (1.8-7.7) K/mm3 Sodium (137-145) mmol/L Potassium (3.6-5.0) mmol/L Chloride (98-107) mmol/L Carbon Dioxide (22-30) mmol/L Anion Gap mmol/L BUN (7-17) mg/dL Creatinine (0.7-1.2) mg/dL Estimated GFR ml/min BUN/Creatinine Ratio % Glucose (65-100) mg/dL Calcium (8.4-10.2) mg/dL HCG, Quant (0-4) mIU/mL Urine Color Yellow (Yellow) Urine Turbidity Clear (Clear) Urine pH 6.0 (5.0-7.0) Ur Specific [place] 1.023 (1.003-1.030) Urine Protein <15 mg/dl (Negative) mg/dL Urine Glucose (UA) Neg (Negative) mg/dL Urine Ketones Neg (Negative) mg/dL Urine Blood Neg (Negative) Urine Nitrite Neg (Negative) Urine Bilirubin Neg (Negative) Urine Urobilinogen < 2.0 (<2.0) mg/dL Ur Leukocyte Esterase Sm (Negative) Urine WBC (Auto) 5.0 (0.0-6.0) /HPF Urine RBC (Auto) 3.0 (0.0-6.0) /HPF U Epithel Cells (Auto) 14.0 H (0-13.0) /HPF Urine Bacteria (Auto) 1+ (Negative) /HPF Amorphous Crystals Few Urine Mucus Few /HPF Blood Type A POSITIVE Ord Rhogam Gestat Weeks Rh pos WEEKS Urine culture pending Wet prep positive BV, negative trichomoniasis and negative yeast CHL tendon - Radiology Data Radiology results: report reviewed OB transvaginal and elderly ultrasound revealed no IUP. Positive fibroid which patient is already aware off - Medical Decision Making ED course: Pt here report that she's been having vaginal bleeding, vaginal discharge and pelvic pain for over a week. She said that she passed some clots last week and then it stopped and patient states she is 8 weeks that was verified by previous ultrasound but she could not give me the clinic. Patient here reports that now she is having light vaginal bleeding with pelvic pain and thick vaginal discharge. Pelvic exam revealed large amount of yellowish discharge and cervix and in vaginal vault with slight odor to include fishy mixed with other orders that cannot be identified. She has no CMT and no adnexal tenderness. Cervical os is closed without any bleed. Patient also had pelvic ultrasound and transvaginal ultrasound OB which shows no IUP but positive uterine fibroids. Labs stable except she has urinary tract infection with wet prep positive for BV and negative for Trichomonas and yeast. CHF pending and urine culture pending. Patient chose to be treated empirically for gonorrhea and chlamydia and was given Rocephin 1 g IM to cover UTI and gonorrhea and azithromycin 1 g by mouth to cover chlamydia. I discussed with patient that she has bacterial vaginosis and she'll need to take Flagyl for 7 days and also to take Bactrim for 7 days to cover urinary tract infection. She voices understanding. I also informed patient that she needs to let her noted that she was treated in emergency room for vaginal discharge with possible STD and he will need to get checked. 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 Critical care attestation.: If time is entered above; I have spent that time in minutes in the direct care of this critically ill patient, excluding procedure time. ED Disposition Clinical Impression: Bacterial vaginosis, Concern about STD in female without diagnosis, Foul smelling vaginal discharge, Pelvic pain, Encounter for test, result negative, Acute cystitis with hematuria Fibroid uterus Qualifiers: Uterine leiomyoma location: unspecified location Qualified Code(s): D25.9 - Leiomyoma of uterus, unspecified Disposition: DC-01 TO HOME OR SELFCARE Is pt being admited?: No Does the pt Need Aspirin: No Condition: Stable Instructions: Bacterial Vaginosis (ED), Urinary Tract Infection in Women (ED), Abdominal Pain (ED), Safe Sex (ED), Sexually Transmitted Diseases (ED), Uterine Fibroids (ED) Additional Instructions: Please practice safe sex Follow-up with your [facility] for COMBINER OPERATOR and primary care evaluation. Your ultrasound showing that you have no but G have uterine fibroids You were treated for gonorrhea and Chlamydia in emergency room today.. You have a urinary tract infection and will be treated with Bactrim DS for 7 days. Please do not have any sexual activity for the next 2 weeks. test was negative. Let you partner that he has been no use were treated for STD in emergency room and he will need to have STD testing. Prescriptions: Fluconazole [Diflucan TAB] 150 mg PO ONCE PRN 1 Days #1 tablet PRN Reason: Prophylaxis for Yeast Ibuprofen [Motrin 800 MG tab] 800 mg PO Q8HR PRN #12 tablet PRN Reason: Pain metroNIDAZOLE [Flagyl] 500 mg PO Q12HR 7 Days #14 tab Sulfamethoxazole/Trimethoprim [Bactrim DS TAB] 1 each PO BID 7 Days #14 tablet Referrals: [facility] [Outside] - 2-3 Days Forms: STI Treatment and Prevention, Work/School Release Form(ED)
[2017-09-19 17:49] LABS: Amorphous Crystals,Urine Few; Bacteria,Urine 1+ /HPF (Negative); Bilirubin,Urine NEG (Negative); Blood,Urine NEG (Negative); Color,Urine Yellow (Yellow); Mucus,Urine FEW /HPF; Protein,Urine <15 mg/dL mg/dL (Negative); Urobilinogen,Urine < 2.0 mg/dL (<2.0)
--- NOTE | 2017-09-19 20:15 | Ultrasound Report ---
FINAL REPORT PROCEDURE: US PELVIC COMPLETE TECHNIQUE: Real-time transabdominal sonography in multiple planes of pelvis was performed with image documentation. This examination was performed without Doppler. Vascular abnormalities, including ovarian torsion, will not be detectable without Doppler evaluation. CPT 90925 HISTORY: abd pain, vb, preg COMPARISON: Transvaginal ultrasound today FINDINGS: UTERUS Size: 10.2 cm. Endometrial thickness: 12 mm. Orientation: anteverted. Cervix: Normal. Fibroids/masses: Fibroid left uterine fundus 4.3 x 3.5 centimeters. RIGHT Ovary: 2.6 x 2.0 cm. Appearance: Normal. LEFT Ovary: 2.4 x 2.2 cm. Appearance: Normal. Pelvic fluid: None. Other: None. IMPRESSION: No IUP seen at this time. Thickened endometrium. Fibroid uterus.
--- NOTE | 2017-09-19 20:36 | Ultrasound Report ---
FINAL REPORT EXAM: US TRANSVAGINAL HISTORY: abd pain, vb, preg. Bilateral pelvic pain with dysfunctional uterine bleeding. . LMP 07/31/2017. Beta HCG level < 2 TECHNIQUE: Ultrasound of the pelvis using transabdominal and transvaginal imaging PRIORS: Ultrasound pelvis 03/12/2017 FINDINGS: Uterus: Uterus is normal in size and heterogeneous in echogenicity. The uterus measures 10.2 x 6.4 x 7.0 cm in size. There is a heterogeneous isoechoic fibroid in the left side of the uterine fundus measuring 4.3 x 3.5 x 3.6 cm. Previously, this measured 3.4 cm and is unchanged. Endometrial stripe: Normal and uniform in thickness measuring 12.1 mm. No evidence for intrauterine is identified. Ovaries: Both ovaries appear normal in size and echogenicity with normal blood flow bilaterally. The right ovary measures 2.6 x 1.5 x 2.0 cm and the left ovary measures 2.4 x 2.0 x 2.2 cm in size. Other: There is no evidence for solid adnexal mass or free fluid in the cul-de-sac seen. IMPRESSION: 1. No intrauterine or extra uterine identified. 2. Large fibroid in the left side of the uterine fundus again noted, unchanged.
[2017-09-19] MEDS ORDERED: XYLOCAINE 1% MPF 5 mL INFILTRATI ONE (21:49)
[2017-09-19] MEDS ORDERED: ZITHROMAX PO ONE (21:49)
[2017-09-19] MEDS ORDERED: ROCEPHIN IM ONE (21:49)
[2017-09-19 22:27] VITALS: BP 119/87
== END 2017-09-19 22:27 | disposition home or self-care (01) ==
LOC: ED 13:21
DX: N76.0 Acute vaginitis (principal); D25.9 Leiomyoma of uterus, unspecified; N30.01 Acute cystitis with hematuria; K21.9 Gastro-esophageal reflux disease without esophagitis; J45.909 Unspecified asthma, uncomplicated; I10 Essential (primary) hypertension; F17.200 Nicotine dependence, unspecified, uncomplicated; Z90.49 Acquired absence of other specified parts of digestive tract
CPT/HCPCS: 36415; 76830; 76856; 80048; 81001; 84702; 85025; 86900; 86901; 87210; 87591; 93005; 93010; 96372; 99284; J0696

== ENCOUNTER 2017-10-24 11:25 | Emergency (ER) | payer SELFPAY ==
[2017-10-24 12:25] LABS: Basophils % (Auto) 0.3 % (0.0-1.8); Eosinophils # (Auto) 0.1 K/mm3 (0.0-0.4); Eosinophils % (Auto) 0.7 % (0.0-4.3); Hematocrit 34.2 % (30.3-42.9); Hemoglobin 10.4 gm/dl (10.1-14.3); Lymphocytes # (Auto) 1.3 K/mm3 (1.2-5.4); Lymphocytes % (Auto) 16.6 % (13.4-35.0); Mean Corpuscular HGB Conc 30 % (30-34); Monocytes # (Auto) 0.6 K/mm3 (0.0-0.8); Monocytes % (Auto) 8.2 % (0.0-7.3); Platelet Count 267 K/mm3 (140-440); Red Blood Count 5.09 M/mm3 (3.65-5.03); Red Cell Distribution Width 17.8 % (13.2-15.2)
[2017-10-24 12:46] LABS: Alanine Aminotransferase 7 units/L (7-56); Albumin 3.9 g/dL (3.9-5); BUN/Creatinine Ratio 11; Blood Urea Nitrogen 8 mg/dL (7-17); Calcium 8.7 mg/dL (8.4-10.2); Hemolysis Index 10
[2017-10-24 12:50] LABS: Mean Corpuscular Hemoglobin 20 pg (28-32); Mean Corpuscular Volume 67 fl (79-97)
[2017-10-24 19:05] LABS: Bilirubin,Urine NEG (Negative); Blood,Urine NEG (Negative); Color,Urine Yellow (Yellow); Mucus,Urine FEW /HPF; Protein,Urine <15 mg/dL mg/dL (Negative); Urobilinogen,Urine < 2.0 mg/dL (<2.0)
[2017-10-24] MEDS ORDERED: TYLENOL PO ONE (22:02)
[2017-10-24] MEDS ORDERED: ZOFRAN ODT PO ONE (22:02)
--- NOTE | 2017-10-24 23:36 | Emergency Department Report ---
ED Female HPI - General Chief complaint: Abdominal Pain Stated complaint: ABD PAIN/VOMITING/ Time Seen by Provider: 10/24/17 22:02 Source: patient Mode of arrival: Ambulatory Limitations: No Limitations - History of Present Illness Initial comments: This is a 32-year-old female who was previously on known to this provider, she is 5, para 4. Last menstrual period is August. Reports positive home test. Presents to the ER complaining of nausea and vomiting. This was decreased and relieved with Zofran. She currently has no complaints at this time. She has no headache, neck pain, chest pain, abdominal pain or shortness of breath. She describes urinary pressure, but no dysuria, or sensation of incomplete voiding. The patient does not have a private animal care specialist -: Gradual Consistency: now resolved Improves with: medication Worsens with: other (symptoms worsened with eating) Are you Now?: Yes Associated Symptoms: nausea/vomiting. denies: vaginal bleeding, abdominal pain , fever/chills, headaches, loss of appetite, dysuria, hematuria, rash, seizure, shortness of breath, syncope, weakness - Related Data Sexually active: Yes Previous Rx's Medication Instructions Recorded Last Taken Type Nitrofurantoin Grayson/M-Cryst 100 mg PO Q12HR #14 capsule 03/12/17 Unknown Rx [Macrobid CAP] Ondansetron [Zofran Odt] 4 mg PO Q8HR PRN #20 tab.rapdis 03/12/17 Unknown Rx traMADol [Ultram 50 MG tab] 50 mg PO Q6HR PRN #20 tablet 03/12/17 Unknown Rx Fluconazole [Diflucan TAB] 150 mg PO ONCE PRN 1 Days #1 tablet 09/19/17 Unknown Rx Ibuprofen [Motrin 800 MG tab] 800 mg PO Q8HR PRN #12 tablet 09/19/17 Unknown Rx Sulfamethoxazole/Trimethoprim 1 each PO BID 7 Days #14 tablet 09/19/17 Unknown Rx [Bactrim DS TAB] metroNIDAZOLE [Flagyl] 500 mg PO Q12HR 7 Days #14 tab 09/19/17 Unknown Rx Acetaminophen [Tylenol Arthritis] 650 mg PO Q6HR PRN #30 tablet.er 10/24/17 Unknown Rx Doxylamine Succinate/Vit B6 1 each PO QHS PRN #30 tablet. 10/24/17 Unknown Rx [Dinesh Vinson 10-10 mg Tablet] Angella Root [Angella] 250 mg PO QID PRN #30 capsule 10/24/17 Unknown Rx Vit Calc,Iron,Folic 1 each PO QDAY #30 tablet 10/24/17 Unknown Rx [ Vitamins] Allergies Allergy/AdvReac Type Severity Reaction Status Date / Time No Known Allergies Allergy Verified 03/12/17 04:23 ED Review of Systems ROS: Stated complaint: ABD PAIN/VOMITING/ Other details as noted in HPI Comment: All other systems reviewed and negative ED Past Medical Hx - Past Medical History Hx GERD: Yes Hx Asthma: Yes Additional medical history: Vaginal delivery x 4 - Surgical History Hx Cholecystectomy: Yes - Social History Smoking Status: Current Every Day Smoker Substance Use Type: None - Medications Home Medications: Home Medications Medication Instructions Recorded Confirmed Last Taken Type Nitrofurantoin Grayson/M-Cryst 100 mg PO Q12HR #14 capsule 03/12/17 Unknown Rx [Macrobid CAP] Ondansetron [Zofran Odt] 4 mg PO Q8HR PRN #20 tab.rapdis 03/12/17 Unknown Rx traMADol [Ultram 50 MG tab] 50 mg PO Q6HR PRN #20 tablet 03/12/17 Unknown Rx Fluconazole [Diflucan TAB] 150 mg PO ONCE PRN 1 Days #1 tablet 09/19/17 Unknown Rx Ibuprofen [Motrin 800 MG tab] 800 mg PO Q8HR PRN #12 tablet 09/19/17 Unknown Rx Sulfamethoxazole/Trimethoprim 1 each PO BID 7 Days #14 tablet 09/19/17 Unknown Rx [Bactrim DS TAB] metroNIDAZOLE [Flagyl] 500 mg PO Q12HR 7 Days #14 tab 09/19/17 Unknown Rx Acetaminophen [Tylenol Arthritis] 650 mg PO Q6HR PRN #30 tablet.er 10/24/17 Unknown Rx Doxylamine Succinate/Vit B6 1 each PO QHS PRN #30 tablet. 10/24/17 Unknown Rx [Dinesh Vinson 10-10 mg Tablet] Angella Root [Angella] 250 mg PO QID PRN #30 capsule 10/24/17 Unknown Rx Vit Calc,Iron,Folic 1 each PO QDAY #30 tablet 10/24/17 Unknown Rx [ Vitamins] ED Physical Exam - General Limitations: No Limitations General appearance: alert, in no apparent distress - Head Head exam: Present: atraumatic, normocephalic - Eye Eye exam: Present: normal appearance, EOMI. Absent: nystagmus - ENT ENT exam: Present: normal exam, normal orophraynx, mucous membranes moist, normal external ear exam - Neck Neck exam: Present: normal inspection, full ROM - Respiratory Respiratory exam: Present: normal lung sounds bilaterally. Absent: respiratory distress, chest wall tenderness - Cardiovascular Cardiovascular Exam: Present: regular rate, normal rhythm, normal heart sounds. Absent: systolic murmur, diastolic murmur, rubs, gallop - GI/Abdominal GI/Abdominal exam: Present: soft, normal bowel sounds. Absent: distended, tenderness, guarding, rebound, rigid, pulsatile mass - Extremities Exam Extremities exam: Present: normal inspection, full ROM, normal capillary refill. Absent: pedal edema, joint swelling, calf tenderness - Back Exam Back exam: Present: normal inspection, full ROM. Absent: tenderness, CVA tenderness (R), muscle spasm, paraspinal tenderness, vertebral tenderness - Neurological Exam Neurological exam: Present: alert, oriented X3, CN II-XII intact, normal gait, other (Extraocular movements intact. Tongue midline. No facial droop. Facial sensation intact to light touch in the V1, V2, V3 distribution bilaterally. 5 and 5 strength in 4 extremities.. Sensation is intact to light touch in 4 extremities.). Absent: motor sensory deficit - Psychiatric Psychiatric exam: Present: normal affect, normal mood. Absent: anxious, flat affect, manic, homicidal ideation - Skin Skin exam: Present: warm, dry, intact, normal color. Absent: rash ED Course Vital Signs 10/24/17 10/24/17 12:01 22:13 Temperature 98 F Pulse Rate 91 H Respiratory 18 18 Rate Blood Pressure 110/61 O2 Sat by Pulse 100 98 Oximetry ED Medical Decision Making - Lab Data Result diagrams: 10/24/17 12:12 10/24/17 12:12 Vital Signs 10/24/17 10/24/17 12:01 22:13 Temperature 98 F Pulse Rate 91 H Respiratory 18 18 Rate Blood Pressure 110/61 O2 Sat by Pulse 100 98 Oximetry Lab Results 10/24/17 10/24/17 10/24/17 Range/Units 12:12 12:12 12:12 WBC 7.8 (4.5-11.0) K/mm3 RBC 5.09 H (3.65-5.03) M/mm3 Hgb 10.4 (10.1-14.3) gm/dl Hct 34.2 (30.3-42.9) % MCV 67 L (79-97) fl MCH 20 L (28-32) pg MCHC 30 (30-34) % RDW 17.8 H (13.2-15.2) % Plt Count 267 (140-440) K/mm3 Lymph % (Auto) 16.6 (13.4-35.0) % Grayson % (Auto) 8.2 H (0.0-7.3) % Eos % (Auto) 0.7 (0.0-4.3) % Baso % (Auto) 0.3 (0.0-1.8) % Lymph # 1.3 (1.2-5.4) K/mm3 Grayson # 0.6 (0.0-0.8) K/mm3 Eos # 0.1 (0.0-0.4) K/mm3 Baso # 0.0 (0.0-0.1) K/mm3 Seg Neutrophils % 74.2 H (40.0-70.0) % Seg Neutrophils # 5.8 (1.8-7.7) K/mm3 Sodium 135 L (137-145) mmol/L Potassium 3.7 (3.6-5.0) mmol/L Chloride 99.3 (98-107) mmol/L Carbon Dioxide 24 (22-30) mmol/L Anion Gap 15 mmol/L BUN 8 (7-17) mg/dL Creatinine 0.7 (0.7-1.2) mg/dL Estimated GFR > 60 ml/min BUN/Creatinine Ratio 11 % Glucose 82 (65-100) mg/dL Calcium 8.7 (8.4-10.2) mg/dL Total Bilirubin 0.20 (0.1-1.2) mg/dL AST 10 (5-40) units/L ALT 7 (7-56) units/L Alkaline Phosphatase 72 (35-129) units/L Total Protein 6.9 (6.3-8.2) g/dL Albumin 3.9 (3.9-5) g/dL Albumin/Globulin Ratio 1.3 % HCG, Qual Positive (Negative) HCG, Quant (0-4) mIU/mL Urine Color (Yellow) Urine Turbidity (Clear) Urine pH (5.0-7.0) Ur Specific [place] (1.003-1.030) Urine Protein (Negative) mg/dL Urine Glucose (UA) (Negative) mg/dL Urine Ketones (Negative) mg/dL Urine Blood (Negative) Urine Nitrite (Negative) Urine Bilirubin (Negative) Urine Urobilinogen (<2.0) mg/dL Ur Leukocyte Esterase (Negative) Urine WBC (Auto) (0.0-6.0) /HPF Urine RBC (Auto) (0.0-6.0) /HPF U Epithel Cells (Auto) (0-13.0) /HPF Urine Mucus /HPF Blood Type Antibody Screen 10/24/17 10/24/17 10/24/17 Range/Units 18:06 22:07 22:07 WBC (4.5-11.0) K/mm3 RBC (3.65-5.03) M/mm3 Hgb (10.1-14.3) gm/dl Hct (30.3-42.9) % MCV (79-97) fl MCH (28-32) pg MCHC (30-34) % RDW (13.2-15.2) % Plt Count (140-440) K/mm3 Lymph % (Auto) (13.4-35.0) % Grayson % (Auto) (0.0-7.3) % Eos % (Auto) (0.0-4.3) % Baso % (Auto) (0.0-1.8) % Lymph # (1.2-5.4) K/mm3 Grayson # (0.0-0.8) K/mm3 Eos # (0.0-0.4) K/mm3 Baso # (0.0-0.1) K/mm3 Seg Neutrophils % (40.0-70.0) % Seg Neutrophils # (1.8-7.7) K/mm3 Sodium (137-145) mmol/L Potassium (3.6-5.0) mmol/L Chloride (98-107) mmol/L Carbon Dioxide (22-30) mmol/L Anion Gap mmol/L BUN (7-17) mg/dL Creatinine (0.7-1.2) mg/dL Estimated GFR ml/min BUN/Creatinine Ratio % Glucose (65-100) mg/dL Calcium (8.4-10.2) mg/dL Total Bilirubin (0.1-1.2) mg/dL AST (5-40) units/L ALT (7-56) units/L Alkaline Phosphatase (35-129) units/L Total Protein (6.3-8.2) g/dL Albumin (3.9-5) g/dL Albumin/Globulin Ratio % HCG, Qual (Negative) HCG, Quant 42865 H (0-4) mIU/mL Urine Color Yellow (Yellow) Urine Turbidity Clear (Clear) Urine pH 6.0 (5.0-7.0) Ur Specific [place] 1.023 (1.003-1.030) Urine Protein <15 mg/dl (Negative) mg/dL Urine Glucose (UA) Neg (Negative) mg/dL Urine Ketones Neg (Negative) mg/dL Urine Blood Neg (Negative) Urine Nitrite Neg (Negative) Urine Bilirubin Neg (Negative) Urine Urobilinogen < 2.0 (<2.0) mg/dL Ur Leukocyte Esterase Neg (Negative) Urine WBC (Auto) 1.0 (0.0-6.0) /HPF Urine RBC (Auto) 1.0 (0.0-6.0) /HPF U Epithel Cells (Auto) 13.0 (0-13.0) /HPF Urine Mucus Few /HPF Blood Type A POSITIVE Antibody Screen Negative - Medical Decision Making Differential diagnosis, including but not limited to: Nausea and vomiting of , hyperemesis Assessment and plan: 32-year-old female, 5, para 4, last menstrual period every 27, endorses pressure with urination, but no dysuria, hematuria, no sensation of incomplete voiding, with nausea and vomiting of . She does not have intractable nausea or vomiting, she is medicated appropriately with Zofran, she does not endorse unintentional weight loss. She has no abdominal pain or tenderness at this time, her physical exam is benign, and a pelvic ultrasound confirms presence of intrauterine . She'll be started empirically and appropriate medications are vitamins , and she is suitable to follow-up in outpatient electric motor mechanic. Critical care attestation.: If time is entered above; I have spent that time in minutes in the direct care of this critically ill patient, excluding procedure time. ED Disposition Clinical Impression: Nausea and vomiting during Disposition: DC-01 TO HOME OR SELFCARE Is pt being admited?: No Does the pt Need Aspirin: No Condition: Stable Instructions: Hyperemesis Gravidarum (ED) Additional Instructions: Take the medications as needed/directed. Avoid consumption of heavy/spicy food. Follow-up with a electric motor mechanic as soon as possible to start care. Return to the ER unaware of fevers, chills, lethargy, irritability, projectile vomiting, change in mental status, confusion, inability to tolerate liquid feeds. Do not have sex until cleared by a electric motor mechanic. Prescriptions: Doxylamine Succinate/Vit B6 [Dinesh Vinson 10-10 mg Tablet] 1 each PO QHS PRN #30 tablet.dr PRN Reason: Nausea Acetaminophen [Tylenol Arthritis] 650 mg PO Q6HR PRN #30 tablet.er PRN Reason: Pain Angella Root [Angella] 250 mg PO QID PRN #30 capsule PRN Reason: Nausea Vit Calc,Iron,Folic [ Vitamins] 1 each PO QDAY #30 tablet Referrals: LINDA DERAS MD [Primary Care Provider] - 3-5 Days [facility] [Provider Group] - 3-5 Days [facility] [Provider Group] - 3-5 Days [facility] [Provider Group] - 3-5 Days Forms: Work/School Release Form(ED)
--- NOTE | 2017-10-25 00:11 | Ultrasound Report ---
FINAL REPORT EXAM: US OB < = 14 WEEKS FETUS HISTORY: abd pain 1 TECHNIQUE: Transabdominal and transvaginal sonography of the pelvis. PRIORS: 19 September 2017. FINDINGS: There is a single, live intrauterine . Ultrasound estimated gestational age is 7 weeks 4 days. Ultrasound estimated date of confinement is 08 June 2018.. heart motion is detected. Small subchorionic hemorrhage measuring 1.6 x 0.6 x 0.6 cm. Large fibroid in the left mid corpus region again noted measuring approximately 6.6 x 6.5 x 5.2 cm. The right ovary measures 2.3 x 1.5 x 2 cm and is grossly unremarkable. The left ovary measures 3.6 x 2 x 3.8 cm and is grossly unremarkable. Remainder of uterus and adnexa grossly unremarkable. IMPRESSION: 1. Single, live intrauterine . 2. Leiomyomatous change in the uterus.
[2017-10-25 00:43] VITALS: BP 117/72
== END 2017-10-25 00:50 | disposition home or self-care (01) ==
LOC: ED 11:25
DX: O21.0 Mild hyperemesis gravidarum (principal); Z3A.00 Weeks of gestation of pregnancy not specified
CPT/HCPCS: 36415; 76801; 76817; 80053; 81001; 84702; 84703; 85025; 86850; 86900; 86901; Q0162

== ENCOUNTER 2018-01-07 07:18 | Emergency (ER) | payer SELFPAY ==
[2018-01-07 07:36] VITALS: BP 103/58
--- NOTE | 2018-01-07 08:23 | Emergency Department Report ---
ED HPI - General Chief complaint: Abdominal Pain Stated complaint: ABDOMINAL PAIN 18 WKS PREG Time Seen by Provider: 01/07/18 08:19 Source: patient Mode of arrival: Ambulatory Limitations: No Limitations - History of Present Illness Initial comments: 32-year-old female past medical history GERD, asthma presents with complaint of one day of abdominal pain. Intermittent pelvic cramping. Patient states she has vaginal discharge and irritation. Denies any bleeding currently may have at spotting earlier in week. Does not currently have an [employer]ER [employer]USTRIAL. Awake alert and oriented 3 not in acute distress. MD Complaint: abdominal pain Onset/Timin -: days(s) Location: pelvis Severity: moderate Quality: cramping Consistency: intermittent Associated symptoms: vaginal discharge, abdominal pain Vaginal bleeding: none :: Yes Number of weeks : 18 Last menstrual period: 09/06/17 - Related Data : 5 Para: 4 Previous Rx's Medication Instructions Recorded Last Taken Type Nitrofurantoin Bennett/M-Cryst 100 mg PO Q12HR #14 capsule 03/12/17 Unknown Rx [Macrobid CAP] Ondansetron [Zofran Odt] 4 mg PO Q8HR PRN #20 tab.rapdis 03/12/17 Unknown Rx traMADol [Ultram 50 MG tab] 50 mg PO Q6HR PRN #20 tablet 03/12/17 Unknown Rx Fluconazole [Diflucan TAB] 150 mg PO ONCE PRN 1 Days #1 tablet 09/19/17 Unknown Rx Ibuprofen [Motrin 800 MG tab] 800 mg PO Q8HR PRN #12 tablet 09/19/17 Unknown Rx Sulfamethoxazole/Trimethoprim 1 each PO BID 7 Days #14 tablet 09/19/17 Unknown Rx [Bactrim DS TAB] metroNIDAZOLE [Flagyl] 500 mg PO Q12HR 7 Days #14 tab 09/19/17 Unknown Rx Acetaminophen [Tylenol Arthritis] 650 mg PO Q6HR PRN #30 tablet.er 10/24/17 Unknown Rx Doxylamine Succinate/Vit B6 1 each PO QHS PRN #30 tablet.dr 10/24/17 Unknown Rx [Dinesh Dr 10-10 mg Tablet] Angella Root [Angella] 250 mg PO QID PRN #30 capsule 10/24/17 Unknown Rx Vit Calc,Iron,Folic 1 each PO QDAY #30 tablet 10/24/17 Unknown Rx [ Vitamins] 21/Iron Fu/Folic Acid 1 each PO QDAY #30 tablet 01/07/18 Unknown Rx [ Complete Caplet] Allergies Allergy/AdvReac Type Severity Reaction Status Date / Time No Known Allergies Allergy Verified 03/12/17 04:23 ED Review of Systems ROS: Stated complaint: ABDOMINAL PAIN 18 WKS PREG Other details as noted in HPI Constitutional: denies: chills, fever Eyes: denies: eye pain, eye discharge, vision change ENT: denies: ear pain, throat pain Respiratory: denies: cough, shortness of breath, wheezing Cardiovascular: denies: chest pain, palpitations Endocrine: no symptoms reported Gastrointestinal: abdominal pain. denies: nausea, diarrhea Genitourinary: discharge. denies: urgency, dysuria Musculoskeletal: denies: back pain, joint swelling, arthralgia Skin: denies: rash, lesions Neurological: denies: headache, weakness, paresthesias Psychiatric: denies: anxiety, depression Hematological/Lymphatic: denies: easy bleeding, easy bruising ED Past Medical Hx - Past Medical History Hx GERD: Yes Hx Asthma: Yes Additional medical history: Vaginal delivery x 4 - Surgical History Hx Cholecystectomy: Yes - Social History Smoking Status: Never Smoker - Medications Home Medications: Home Medications Medication Instructions Recorded Confirmed Last Taken Type Nitrofurantoin Bennett/M-Cryst 100 mg PO Q12HR #14 capsule 03/12/17 Unknown Rx [Macrobid CAP] Ondansetron [Zofran Odt] 4 mg PO Q8HR PRN #20 tab.rapdis 03/12/17 Unknown Rx traMADol [Ultram 50 MG tab] 50 mg PO Q6HR PRN #20 tablet 03/12/17 Unknown Rx Fluconazole [Diflucan TAB] 150 mg PO ONCE PRN 1 Days #1 tablet 09/19/17 Unknown Rx Ibuprofen [Motrin 800 MG tab] 800 mg PO Q8HR PRN #12 tablet 09/19/17 Unknown Rx Sulfamethoxazole/Trimethoprim 1 each PO BID 7 Days #14 tablet 09/19/17 Unknown Rx [Bactrim DS TAB] metroNIDAZOLE [Flagyl] 500 mg PO Q12HR 7 Days #14 tab 09/19/17 Unknown Rx Acetaminophen [Tylenol Arthritis] 650 mg PO Q6HR PRN #30 tablet.er 10/24/17 Unknown Rx Doxylamine Succinate/Vit B6 1 each PO QHS PRN #30 tablet. 10/24/17 Unknown Rx [Dinesh Vinson 10-10 mg Tablet] Angella Root [Angella] 250 mg PO QID PRN #30 capsule 10/24/17 Unknown Rx Vit Calc,Iron,Folic 1 each PO QDAY #30 tablet 10/24/17 Unknown Rx [ Vitamins] 21/Iron Fu/Folic Acid 1 each PO QDAY #30 tablet 01/07/18 Unknown Rx [ Complete Caplet] ED Physical Exam - General Limitations: No Limitations General appearance: alert, in no apparent distress - Head Head exam: Present: atraumatic, normocephalic - Eye Eye exam: Present: normal appearance - ENT ENT exam: Present: mucous membranes moist - Neck Neck exam: Present: normal inspection - Respiratory Respiratory exam: Present: normal lung sounds bilaterally. Absent: respiratory distress - Cardiovascular Cardiovascular Exam: Present: regular rate, normal rhythm. Absent: systolic murmur, diastolic murmur, rubs, gallop - GI/Abdominal GI/Abdominal exam: Present: soft (gravid abdomen), normal bowel sounds - External exam: Present: normal external exam Speculum exam: Present: normal speculum exam Bi-manual exam: Present: normal bi-manual exam - Extremities Exam Extremities exam: Present: normal inspection - Back Exam Back exam: Present: normal inspection - Neurological Exam Neurological exam: Present: alert, oriented X3, CN II-XII intact, normal gait - Psychiatric Psychiatric exam: Present: normal affect, normal mood - Skin Skin exam: Present: warm, dry, intact, normal color. Absent: rash ED Course Vital Signs 01/07/18 07:33 Temperature 98.5 F Pulse Rate 82 Respiratory 16 Rate Blood Pressure 103/58 O2 Sat by Pulse 100 Oximetry ED Medical Decision Making - Lab Data Result diagrams: 01/07/18 08:34 01/07/18 08:34 - Medical Decision Making A/P: Pelvic pain during first trimester 1-ultrasound shows a fetus at 17 weeks 6 days with active cardiac cavity. Large intramural fibroid as commented on on ultrasound report. I discussed this with on-call [employer] Dr. Beatty. As per Dr. Beatty there is no acute intervention for this. I informed the patient of this finding. Patient to follow-up in clinic. I informed her to do so. 2-wet prep negative, ultrasound negative 3-GC culture sent. Patient has no copious discharge at this time and does not report STD exposure 4- vitamins. Labs otherwise unremarkable Critical care attestation.: If time is entered above; I have spent that time in minutes in the direct care of this critically ill patient, excluding procedure time. ED Disposition Clinical Impression: Pelvic pain during Disposition: TO HOME OR SELFCARE Is pt being admited?: No Does the pt Need Aspirin: No Condition: Stable Instructions: Abdominal Pain (ED), Uterine Fibroids (ED), (ED) Additional Instructions: [email or web address] Prescriptions: 21/Iron Fu/Folic Acid [ Complete Caplet] 1 each PO QDAY #30 tablet Referrals: EDVIN BEATTY MD [Staff Physician] - 3-5 Days Forms: Accompanied Note, Work/School Release Form(ED) Time of Disposition: 09:49
[2018-01-07 08:46] LABS: Basophils % (Auto) 0.3 % (0.0-1.8); Eosinophils # (Auto) 0.1 K/mm3 (0.0-0.4); Eosinophils % (Auto) 0.9 % (0.0-4.3); Hematocrit 31.4 % (30.3-42.9); Lymphocytes # (Auto) 1.9 K/mm3 (1.2-5.4); Lymphocytes % (Auto) 17.1 % (13.4-35.0); Mean Corpuscular HGB Conc 32 % (30-34); Monocytes # (Auto) 0.8 K/mm3 (0.0-0.8); Monocytes % (Auto) 6.8 % (0.0-7.3); Platelet Count 208 K/mm3 (140-440); Red Blood Count 4.59 M/mm3 (3.65-5.03); Red Cell Distribution Width 19.4 % (13.2-15.2)
[2018-01-07 08:48] LABS: Bilirubin,Urine NEG (Negative); Blood,Urine NEG (Negative); Color,Urine Yellow (Yellow); Mucus,Urine FEW /HPF; Protein,Urine <15 mg/dL mg/dL (Negative); Urobilinogen,Urine < 2.0 mg/dL (<2.0)
[2018-01-07 08:50] LABS: Mean Corpuscular Hemoglobin 22 pg (28-32); Mean Corpuscular Volume 68 fl (79-97)
[2018-01-07 08:57] LABS: BUN/Creatinine Ratio 22; Blood Urea Nitrogen 11 mg/dL (7-17); Calcium 9.1 mg/dL (8.4-10.2); Hemolysis Index 0
--- NOTE | 2018-01-07 09:36 | Ultrasound Report ---
OBSTETRICAL ULTRASOUND: 01/07/18 08:21:00 CLINICAL:18 weeks with abdominal pain. COMPARISON:10/24/17 Gestation: Jimenez Position: Breech Amniotic Fluid: Normal Placenta: Anterior Placental Grade: 0. No previa. Heart Rate: 152 BPM Cervical length: 3.0 cm (Normal > 3 cm) Fluid seen in the stomach and bladder. However, too early for a complete anatomical survey BPD: 3.8 cm = 17 w 3 d HC: 14.7 cm = 17 w 6 d AC: 13.2 cm = 18 w 5 d FL: 2.5 cm = 17 w 3 d HC/AC Ratio: 1.12 Cephalic Index: 77.9 Estimated Weight: 222 grams A large anterior lower uterine body intramural fibroid to the left of midline measures 7.7 x 7.2 x 6.7 cm. The fibroid is inferior to the placenta. No other fibroid is identified. Both ovaries were well imaged and normal. No adnexal mass or free fluid. IMPRESSION: Single living acute or fetus at 17 weeks 6 days based on ultrasound measurements and 18 weeks 2 days based on previous sonogram. Appropriate growth. A single large intramural fibroid which is a likely source of pain. EDC based on prior sonogram: 06/08/18 EDC based on current measurements: 06/11/18
== END 2018-01-07 10:10 | disposition home or self-care (01) ==
LOC: ED 07:18
DX: O26.892 Other specified pregnancy related conditions, second trimester (principal); R10.2 Pelvic and perineal pain; N89.8 Other specified noninflammatory disorders of vagina; O99.512 Diseases of the respiratory system complicating pregnancy, second trimester; J45.909 Unspecified asthma, uncomplicated; O99.612 Diseases of the digestive system complicating pregnancy, second trimester; K21.9 Gastro-esophageal reflux disease without esophagitis; Z90.49 Acquired absence of other specified parts of digestive tract; Z3A.18 18 weeks gestation of pregnancy
CPT/HCPCS: 36415; 76805; 80048; 81001; 84702; 85025; 86900; 86901; 87086; 87210; 87591

== ENCOUNTER 2019-07-07 00:47 | Emergency (ER) | payer SELFPAY ==
[2019-07-07 03:23] LABS: HCG Qualitative,Urine Positive (Negative)
[2019-07-07 03:31] LABS: Bacteria,Urine 3+ /HPF (Negative); Bilirubin,Urine NEG (Negative); Blood,Urine NEG (Negative); Mucus,Urine 3+ /HPF; Urobilinogen,Urine < 2.0 mg/dL (<2.0)
[2019-07-07 04:07] LABS: Color,Urine Yellow (Yellow)
--- NOTE | 2019-07-07 05:37 | Event Note ---
ED Screening Note Date of service: 07/07/19 Time: 05:35 ED Screening Note: 34-year-old -[place] female presents to the emergency room complaining of abdominal pain cough Raynaud's lower back pain with pressure when urinating 2 days. Patient reports her last menstrual period was the end of March. Patient is 5 para 4. It was noted that patient lab work shows that she is positive for . This initial assessment/diagnostic orders/clinical plan/treatment(s) is/are subject to change based on patients health status, clinical progression and re- assessment by fellow clinical providers in the ED. Further treatment and workup at subsequent clinical providers discretion. Patient/guardian urged not to elope from the ED as their condition may be serious if not clinically assessed and managed. Initial orders include: We would do an hCG ultrasound patient be evaluated after testing been completely
--- NOTE | 2019-07-07 07:36 | Ultrasound Report ---
US OB >= 14 weeks Fetus INDICATION / CLINICAL INFORMATION: +preg abd pain. COMPARISON: None available. FINDINGS: Single, viable intrauterine in cephalic presentation. heart rate 162. Placenta is anterior and free of the cervical os. Biparietal diameter 5.1 cm, 21 weeks 4 days. Head circumference 18.5 cm, 20 weeks 6 days. Abdominal circumference 16.7 cm, 21 weeks 5 days. Femur length 3.4 cm, 20 weeks 5 days. Estimated body weight 410 g. Cervical length measures 3.2 cm. IMPRESSION: 1. Single, viable 21 week 2 day intrauterine . Signer Name: Toni Iniguez MD Signed: 07/07/2019 7:32 AM Workstation Name: [id number]
[2019-07-07] MEDS ORDERED: ACETAMINOPHEN 325 MG TAB PO ONE (07:42)
--- NOTE | 2019-07-07 07:51 | Emergency Department Report ---
ED Abdominal Pain HPI - General Chief Complaint: Abdominal Pain Stated Complaint: ABD PAIN/COUGH Time Seen by Provider: 07/07/19 07:31 Source: patient Mode of arrival: Ambulatory Limitations: No Limitations - History of Present Illness Initial Comments: 34 yo female c/o lower abdominal pain, bodyaches nausea and vomiting x 2 days. She vomit last night x one. Denies fever and chills no known sick contacts. Denies PMH. MD Complaint: abdominal pain -: days(s) (2) Location: suprapubic Radiation: none Severity scale (0 -10): 6 Quality: aching Consistency: constant Improves With: nothing Worsens With: nothing Associated Symptoms: other (denies vaginal bleeding ) - Related Data LMP (females 10-50): unknown Previous Rx's Medication Instructions Recorded Last Taken Type Ferrous Sulfate [Feosol 325 MG tab] 325 mg PO BID #60 tablet 05/31/18 Unknown Rx Ibuprofen [Motrin] 800 mg PO Q8HR PRN #30 tablet 05/31/18 Unknown Rx cephALEXin [Keflex] 500 mg PO Q12HR 7 Days #14 cap 07/07/19 Unknown Rx Allergies Allergy/AdvReac Type Severity Reaction Status Date / Time No Known Allergies Allergy Verified 05/30/18 02:27 ED Review of Systems ROS: Stated complaint: ABD PAIN/COUGH Other details as noted in HPI Comment: All other systems reviewed and negative Constitutional: chills Respiratory: cough Cardiovascular: denies: chest pain, palpitations Gastrointestinal: abdominal pain, nausea, vomiting. denies: diarrhea Genitourinary: frequency Musculoskeletal: denies: back pain Skin: denies: rash ED Past Medical Hx - Past Medical History Previous Medical History?: Yes Hx Hypertension: No Hx Diabetes: No Hx Deep Vein Thrombosis: No Hx GERD: Yes Hx Renal Disease: No Hx Sickle Cell Disease: No Hx Seizures: No Hx Asthma: Yes Hx HIV: No Additional medical history: Vaginal delivery x 4 - Surgical History Past Surgical History?: Yes Hx Cholecystectomy: Yes - Social History Smoking Status: Current Every Day Smoker Substance Use Type: None - Medications Home Medications: Home Medications Medication Instructions Recorded Confirmed Last Taken Type Ferrous Sulfate [Feosol 325 MG tab] 325 mg PO BID #60 tablet 05/31/18 Unknown Rx Ibuprofen [Motrin] 800 mg PO Q8HR PRN #30 tablet 05/31/18 Unknown Rx cephALEXin [Keflex] 500 mg PO Q12HR 7 Days #14 cap 07/07/19 Unknown Rx ED Physical Exam - General Limitations: No Limitations General appearance: alert, in no apparent distress - Head Head exam: Absent: atraumatic - Eye Eye exam: Present: normal appearance - ENT ENT exam: Present: normal exam - Respiratory Respiratory exam: Present: normal lung sounds bilaterally - Cardiovascular Cardiovascular Exam: Present: regular rate, normal heart sounds - GI/Abdominal GI/Abdominal exam: Present: soft, normal bowel sounds. Absent: distended, tenderness, guarding, rebound, rigid - Extremities Exam Extremities exam: Present: normal inspection - Back Exam Back exam: Present: normal inspection - Neurological Exam Neurological exam: Present: alert, oriented X3 - Psychiatric Psychiatric exam: Present: normal affect - Skin Skin exam: Present: warm, dry, intact ED Course Vital Signs 07/07/19 01:11 Temperature 99.8 F H Pulse Rate 114 H Respiratory 20 Rate Blood Pressure 116/63 O2 Sat by Pulse 98 Oximetry ED Medical Decision Making - Lab Data Result diagrams: 07/07/19 07:50 07/07/19 07:50 - Radiology Data Radiology results: report reviewed US FINDINGS: Single, viable intrauterine in cephalic presentation. heart rate 162. Placenta is anterior and free of the cervical os. Biparietal diameter 5.1 cm, 21 weeks 4 days. Head circumference 18.5 cm, 20 weeks 6 days. Abdominal circumference 16.7 cm, 21 weeks 5 days. Femur length 3.4 cm, 20 weeks 5 days. Estimated body weight 410 g. Cervical length measures 3.2 cm. IMPRESSION: 1. Single, viable 21 week 2 day intrauterine . - Medical Decision Making 34 female c/o abd pain x 2 days + new to patient she denies vaginal bleeding US reveals 21 weeks single IUP Heart Rate 162 Urine + for UTI Rx for Cephalexin given HCG Quant: 3754 Anemia hgb 8.8 hct 28.7 She has hx of anemia 05/30/18 Hgb 10.7 Hct 33 Continue with iron tabs RH A positive Follow up with your [employer] Dr. Platt Critical Care Time: No Critical care attestation.: If time is entered above; I have spent that time in minutes in the direct care of this critically ill patient, excluding procedure time. ED Disposition Clinical Impression: Normal IUP (intrauterine ) on ultrasound Qualifiers: Trimester: second trimester Qualified Code(s): Z34.92 - Encounter for supervision of normal , unspecified, second trimester UTI (urinary tract infection) Qualifiers: Urinary tract infection type: acute cystitis Hematuria presence: with hematuria Qualified Code(s): N30.01 - Acute cystitis with hematuria Anemia Qualifiers: Anemia type: unspecified type Qualified Code(s): D64.9 - Anemia, unspecified Disposition: TO HOME OR SELFCARE Is pt being admited?: No Does the pt Need Aspirin: No Condition: Stable Instructions: Abdominal Pain (ED), (ED), Urinary Tract Infection in Women (ED) Additional Instructions: Ultrasound show that you are 21 weeks 2 day single . You are also anemic continue taking your Iron tablets as previously prescribed Rest increase hydration to 6-8 glasses of water daily. Follow up with Dr. Platt. Call and make appointment as soon as possible. Take medications as prescribed. Return to the ER if you develop increasing abdominal pain, vaginal bleeding, fever, increasing vomiting. Prescriptions: cephALEXin [Keflex] 500 mg PO Q12HR 7 Days #14 cap Referrals: PRIMARY MD JOSEPH [Primary Care Provider] - 3-5 Days KARLIE PLATT MD [Staff Physician] - 3-5 Days Time of Disposition: 09:26
[2019-07-07 08:19] LABS: Hematocrit 28.7 % (30.3-42.9); Hemoglobin 8.8 gm/dl (10.1-14.3); Mean Corpuscular HGB Conc 31 % (30-34); Platelet Count 215 K/mm3 (140-440); Red Blood Count 4.81 M/mm3 (3.65-5.03); Red Cell Distribution Width 19.1 % (13.2-15.2)
[2019-07-07 08:35] LABS: Mean Corpuscular Volume 60 fl (79-97)
[2019-07-07 08:43] LABS: BUN/Creatinine Ratio 12; Blood Urea Nitrogen 6 mg/dL (7-17); Calcium 8.7 mg/dL (8.4-10.2); Hemolysis Index 0
[2019-07-07 09:55] VITALS: BP 114/55
== END 2019-07-07 09:53 | disposition home or self-care (01) ==
LOC: ED 00:47
DX: O23.42 Unspecified infection of urinary tract in pregnancy, second trimester (principal); O99.012 Anemia complicating pregnancy, second trimester; O99.332 Smoking (tobacco) complicating pregnancy, second trimester; F17.200 Nicotine dependence, unspecified, uncomplicated; Z3A.21 21 weeks gestation of pregnancy
CPT/HCPCS: 36415; 76805; 80048; 81001; 81025; 84702; 85027; 86900; 86901; 87086; 87400

== ENCOUNTER 2019-07-15 22:19 | Emergency (ER) | payer MEDICAID ==
[2019-07-16] MEDS ORDERED: predniSONE 20 MG TAB PO ONE (03:59)
[2019-07-16] MEDS ORDERED: ACETAMINOPHEN 500 MG TAB PO ONE (03:59)
--- NOTE | 2019-07-16 04:36 | Emergency Department Report ---
- General Chief Complaint: Dyspnea/Respdistress Stated Complaint: CHEST TIGHTNESS Source: patient Mode of arrival: Ambulatory Limitations: No Limitations - History of Present Illness Initial Comments: Patient is a 34-year-old female with no past medical history presents to the ED with a complaint of acute onset persistent severe nasal and sinus congestion, frontal sinus pressure, sore throat, dry cough with pleuritic chest wall pain for the last 2 weeks, worse in the last 2 days. Patient denies fever, chills, nausea, vomiting, diarrhea, syncope, palpitations, or dysuria and vaginal bleeding. MD Complaint: fever, cough, sore throat, rhinorrhea, nasal congestion, sinus pain, other (pleuritic chest wall pain) -: Sudden, week(s) (2) Severity: severe Severity scale (0 -10): 7 Quality: sharp, aching Consistency: intermittent Improves With: nothing Worsens With: nothing Associated Symptoms: denies other symptoms, fever, chills, myalgias, headache, rhinorrhea, nasal congestion, sore throat, cough, chest pain. denies: diaphoresis, shortness of breath, abdominal pain, nausea, vomiting, dysuria, rash, confusion, weight loss, epistaxis, hoarseness Treatments Prior to Arrival: none - Related Data Previous Rx's Medication Instructions Recorded Last Taken Type Ferrous Sulfate [Feosol 325 MG tab] 325 mg PO BID #60 tablet 05/31/18 Unknown Rx Ibuprofen [Motrin] 800 mg PO Q8HR PRN #30 tablet 05/31/18 Unknown Rx cephALEXin [Keflex] 500 mg PO Q12HR 7 Days #14 cap 07/07/19 Unknown Rx Amoxicillin [Trimox CAP] 500 mg PO Q8H #30 capsule 07/16/19 Unknown Rx Cetirizine HCl [Zyrtec 10mg tab] 10 mg PO DAILY #30 tablet 07/16/19 Unknown Rx Allergies Allergy/AdvReac Type Severity Reaction Status Date / Time No Known Allergies Allergy Verified 05/30/18 02:27 ED Review of Systems ROS: Stated complaint: CHEST TIGHTNESS Other details as noted in HPI Constitutional: denies: chills, fever Eyes: denies: eye pain, eye discharge, vision change ENT: congestion, other. denies: ear pain, throat pain Respiratory: cough. denies: shortness of breath, wheezing Cardiovascular: denies: chest pain, palpitations Endocrine: no symptoms reported Gastrointestinal: denies: abdominal pain, nausea, diarrhea Genitourinary: denies: urgency, dysuria, discharge Musculoskeletal: denies: back pain, joint swelling, arthralgia Skin: denies: rash, lesions Neurological: denies: headache, weakness, paresthesias Psychiatric: denies: anxiety, depression Hematological/Lymphatic: denies: easy bleeding, easy bruising ED Past Medical Hx - Past Medical History Hx Hypertension: No Hx Diabetes: No Hx Deep Vein Thrombosis: No Hx GERD: Yes Hx Renal Disease: No Hx Sickle Cell Disease: No Hx Seizures: No Hx Asthma: Yes Hx HIV: No Additional medical history: Vaginal delivery x 4 - Surgical History Hx Cholecystectomy: Yes - Social History Smoking Status: Current Every Day Smoker Substance Use Type: None - Medications Home Medications: Home Medications Medication Instructions Recorded Confirmed Last Taken Type Ferrous Sulfate [Feosol 325 MG tab] 325 mg PO BID #60 tablet 05/31/18 Unknown Rx Ibuprofen [Motrin] 800 mg PO Q8HR PRN #30 tablet 05/31/18 Unknown Rx cephALEXin [Keflex] 500 mg PO Q12HR 7 Days #14 cap 07/07/19 Unknown Rx Amoxicillin [Trimox CAP] 500 mg PO Q8H #30 capsule 07/16/19 Unknown Rx Cetirizine HCl [Zyrtec 10mg tab] 10 mg PO DAILY #30 tablet 07/16/19 Unknown Rx ED Physical Exam - General Limitations: No Limitations General appearance: alert, in no apparent distress - Head Head exam: Present: atraumatic, normocephalic, normal inspection - Eye Eye exam: Present: normal appearance, PERRL, EOMI Pupils: Present: normal accommodation - ENT ENT exam: Present: normal orophraynx, mucous membranes moist, TM's normal bilaterally, normal external ear exam, other (grossly congested nasal passages, palpable frontal sinus tenderness) - Neck Neck exam: Present: normal inspection, full ROM - Respiratory Respiratory exam: Present: normal lung sounds bilaterally. Absent: respiratory distress, wheezes, rales, rhonchi, chest wall tenderness, accessory muscle use, decreased breath sounds - Cardiovascular Cardiovascular Exam: Present: normal rhythm, tachycardia, normal heart sounds. Absent: systolic murmur, diastolic murmur, rubs, gallop - GI/Abdominal GI/Abdominal exam: Present: soft, normal bowel sounds. Absent: distended, tenderness, guarding, hyperactive bowel sounds - Extremities Exam Extremities exam: Present: normal inspection, full ROM, normal capillary refill - Back Exam Back exam: Present: normal inspection, full ROM. Absent: tenderness, muscle spasm, paraspinal tenderness - Neurological Exam Neurological exam: Present: alert, oriented X3, CN II-XII intact, normal gait, reflexes normal - Psychiatric Psychiatric exam: Present: normal affect, normal mood - Skin Skin exam: Present: warm, dry, intact, normal color. Absent: rash ED Course Vital Signs 07/15/19 22:41 Temperature 99.4 F Pulse Rate 113 H Respiratory 18 Rate Blood Pressure 111/61 O2 Sat by Pulse 98 Oximetry ED Medical Decision Making - Medical Decision Making This is a 34-year-old [place] female presented to the ED with persistent nasal and sinus congestion, frontal sinus pressure, sore throat, dry cough, diffuse body aches and pains and pleuritic chest pain for 2 weeks. In the ED, patient is alert and oriented 3 and is not in distress but tachycardic in triage. Patient was treated for pain and also given oral prednisone. Patient was discharged home on medications and advised follow-up with her primary care p belen in 5-7 days for reevaluation. Patient was advised return to the ED immediately if symptoms get worse. - Differential Diagnosis URI; Bronchitis; Pneumonia; Strep Pharyngitis Critical care attestation.: If time is entered above; I have spent that time in minutes in the direct care of this critically ill patient, excluding procedure time. ED Disposition Clinical Impression: Acute upper respiratory infection Acute sinusitis, unspecified Qualifiers: Sinusitis location: frontal Recurrence: non-recurrent Qualified Code(s): J01.10 - Acute frontal sinusitis, unspecified Acute bronchitis Qualifiers: Bronchitis organism: other organism Qualified Code(s): J20.8 - Acute bronchitis due to other specified organisms Disposition: -01 TO HOME OR SELFCARE Is pt being admited?: No Does the pt Need Aspirin: No Condition: Stable Instructions: Acute Bronchitis (ED), Upper Respiratory Infection (ED), Acute Bacterial Rhinosinusitis (ED) Additional Instructions: Take medication with food, drink plenty of fluids and follow-up with your primary care physician in 5-7 days for reevaluation. Return to the ED immediately if symptoms get worse. Prescriptions: Amoxicillin [Trimox CAP] 500 mg PO Q8H #30 capsule Cetirizine HCl [Zyrtec 10mg tab] 10 mg PO DAILY #30 tablet Referrals: YOSVANY BURNETT MD [Staff Physician] - 7-10 days Time of Disposition: 04:37 Print Language: GERMAN
[2019-07-16 06:15] VITALS: BP 116/50
== END 2019-07-16 05:16 | disposition home or self-care (01) ==
LOC: ED 22:19
DX: J01.90 Acute sinusitis, unspecified (principal); J02.9 Acute pharyngitis, unspecified; J45.909 Unspecified asthma, uncomplicated; F17.200 Nicotine dependence, unspecified, uncomplicated; Z90.49 Acquired absence of other specified parts of digestive tract
CPT/HCPCS: 99282; J7512

== ENCOUNTER 2019-08-07 02:37 | Outpatient (CLI) | payer MEDICAID ==
[2019-08-07] MEDS ORDERED: LACTATED RINGERS 1,000 ML IV ONE ×2 (03:37→03:40)
[2019-08-07 04:08] LABS: Amphetamine Screen,Urine PRESUMPTIVE NEGATIVE; Benzodiazepines Screen,Urine PRESUMPTIVE NEGATIVE; Methadone Screen,Urine PRESUMPTIVE NEGATIVE; Opiate Screen,Urine PRESUMPTIVE NEGATIVE
[2019-08-07 04:40] LABS: Cocaine Screen,Urine PRESUMPTIVE POSITIVE
[2019-08-07 04:43] VITALS: BP 119/71
[2019-08-07 05:01] LABS: Cannabinoid Screen,Urine PRESUMPTIVE POSITIVE
== END 2019-08-07 05:05 | disposition still patient (30) ==
LOC: EDSTATUS 03:12 → TRG 03:20
PROVIDERS: ATTEND Obstetrics & Gynecology
DX: O26.892 Other specified pregnancy related conditions, second trimester (principal); R05 Cough; R07.9 Chest pain, unspecified; R10.9 Unspecified abdominal pain; O99.322 Drug use complicating pregnancy, second trimester; F14.90 Cocaine use, unspecified, uncomplicated; O99.512 Diseases of the respiratory system complicating pregnancy, second trimester; J45.909 Unspecified asthma, uncomplicated; O99.342 Other mental disorders complicating pregnancy, second trimester; F32.9 Major depressive disorder, single episode, unspecified; O99.612 Diseases of the digestive system complicating pregnancy, second trimester; K21.9 Gastro-esophageal reflux disease without esophagitis; O99.332 Smoking (tobacco) complicating pregnancy, second trimester; F17.200 Nicotine dependence, unspecified, uncomplicated; Z3A.25 25 weeks gestation of pregnancy
CPT/HCPCS: 80307; 96360; J7120

== ENCOUNTER 2019-08-07 05:17 | Emergency (ER) | payer MEDICAID ==
[2019-08-07 06:14] VITALS: BP 130/74
[2019-08-07 06:23] LABS: Basophils % (Auto) 0.2 % (0.0-1.8); Eosinophils # (Auto) 0.1 K/mm3 (0.0-0.4); Hematocrit 27.1 % (30.3-42.9); Hemoglobin 8.4 gm/dl (10.1-14.3); Lymphocytes # (Auto) 2.1 K/mm3 (1.2-5.4); Lymphocytes % (Auto) 18.3 % (13.4-35.0); Mean Corpuscular HGB Conc 31 % (30-34); Monocytes # (Auto) 0.6 K/mm3 (0.0-0.8); Monocytes % (Auto) 4.9 % (0.0-7.3); Platelet Count 260 K/mm3 (140-440); Red Blood Count 4.41 M/mm3 (3.65-5.03)
[2019-08-07 06:24] LABS: Mean Corpuscular Volume 61 fl (79-97)
[2019-08-07 06:25] LABS: Red Cell Distribution Width 20.6 % (13.2-15.2)
[2019-08-07 06:43] LABS: BUN/Creatinine Ratio 18; Blood Urea Nitrogen 9 mg/dL (7-17); Calcium 8.7 mg/dL (8.4-10.2); Hemolysis Index 0
[2019-08-07] MEDS ORDERED: IPRATROPIUM/ALBUTEROL SULFATE 3 ML AMPUL.NEB IH ONE (10:05)
--- NOTE | 2019-08-07 10:17 | Emergency Department Report ---
ED General Adult HPI - General Chief complaint: Alcohol Stated complaint: CHEST TIGHTNESS/INSECT BITES/DISCHARGE Time Seen by Provider: 08/07/19 09:27 Source: patient Mode of arrival: Ambulatory Limitations: No Limitations - History of Present Illness Initial comments: The patient presents to the emergency department with chief complaint of chest tightness secondary to asthma. Patient states she has been dispensing difficulty breathing for the last couple of days and does not have an inhaler at home to help with her symptoms. Patient was also complaining of abdominal pain and was cleared by labor and delivery prior to coming to the ED. Patient also complains about bed bug bites to her legs and back. Patient states she is also here to get help with drug and alcohol abuse. The patient denies janie chest pain, headache, numbness or weakness. Patient endorses a history of schizophrenia but denies suicidal or homicidal ideation. Patient also denies auditory or visual hallucinations. -: Gradual Severity scale (0 -10): 1 Quality: other (tightness) Consistency: constant Improves with: none Worsens with: none Associated Symptoms: denies other symptoms Treatments Prior to Arrival: none - Related Data Previous Rx's Medication Instructions Recorded Last Taken Type Ferrous Sulfate [Feosol 325 MG tab] 325 mg PO BID #60 tablet 05/31/18 Unknown Rx Ibuprofen [Motrin] 800 mg PO Q8HR PRN #30 tablet 05/31/18 Unknown Rx cephALEXin [Keflex] 500 mg PO Q12HR 7 Days #14 cap 07/07/19 Unknown Rx Amoxicillin [Trimox CAP] 500 mg PO Q8H #30 capsule 07/16/19 Unknown Rx Cetirizine HCl [Zyrtec 10mg tab] 10 mg PO DAILY #30 tablet 07/16/19 Unknown Rx Allergies Allergy/AdvReac Type Severity Reaction Status Date / Time No Known Allergies Allergy Verified 05/30/18 02:27 ED Review of Systems ROS: Stated complaint: CHEST TIGHTNESS/INSECT BITES/DISCHARGE Other details as noted in HPI Constitutional: denies: chills, fever Eyes: denies: eye pain, eye discharge, vision change ENT: denies: ear pain, throat pain Respiratory: shortness of breath, wheezing. denies: cough Cardiovascular: denies: chest pain, palpitations Endocrine: no symptoms reported Gastrointestinal: denies: abdominal pain, nausea, diarrhea Genitourinary: denies: urgency, dysuria, discharge Musculoskeletal: denies: back pain, joint swelling, arthralgia Skin: denies: rash, lesions Neurological: denies: headache, weakness, paresthesias Psychiatric: denies: anxiety, depression Hematological/Lymphatic: denies: easy bleeding, easy bruising ED Past Medical Hx - Past Medical History Previous Medical History?: Yes Hx Hypertension: No Hx Diabetes: No Hx Deep Vein Thrombosis: No Hx GERD: Yes Hx Renal Disease: No Hx Sickle Cell Disease: No Hx Seizures: No Hx Asthma: Yes (treated for bronchitis) Hx HIV: No Additional medical history: Vaginal delivery x 4. bronchitis - Surgical History Past Surgical History?: Yes Hx Cholecystectomy: Yes - Social History Smoking Status: Current Every Day Smoker Substance Use Type: Alcohol, Cocaine - Medications Home Medications: Home Medications Medication Instructions Recorded Confirmed Last Taken Type Ferrous Sulfate [Feosol 325 MG tab] 325 mg PO BID #60 tablet 05/31/18 Unknown Rx Ibuprofen [Motrin] 800 mg PO Q8HR PRN #30 tablet 05/31/18 Unknown Rx cephALEXin [Keflex] 500 mg PO Q12HR 7 Days #14 cap 07/07/19 Unknown Rx Amoxicillin [Trimox CAP] 500 mg PO Q8H #30 capsule 07/16/19 Unknown Rx Cetirizine HCl [Zyrtec 10mg tab] 10 mg PO DAILY #30 tablet 07/16/19 Unknown Rx ED Physical Exam - General Limitations: No Limitations General appearance: alert, in no apparent distress - Head Head exam: Present: atraumatic, normocephalic - Eye Eye exam: Present: normal appearance, PERRL, EOMI - ENT ENT exam: Present: mucous membranes moist - Neck Neck exam: Present: normal inspection - Respiratory Respiratory exam: Present: wheezes. Absent: respiratory distress, rales - Cardiovascular Cardiovascular Exam: Present: regular rate, normal rhythm. Absent: systolic murmur, diastolic murmur, rubs, gallop - GI/Abdominal GI/Abdominal exam: Present: soft, normal bowel sounds, other (gravid uterus on exam). Absent: distended, tenderness - Extremities Exam Extremities exam: Present: normal inspection - Back Exam Back exam: Present: normal inspection - Neurological Exam Neurological exam: Present: alert, oriented X3, CN II-XII intact. Absent: motor sensory deficit - Psychiatric Psychiatric exam: Present: normal affect, normal mood - Skin Skin exam: Present: warm, dry, intact, normal color, rash (vision consistent with bedbug bites) ED Course Vital Signs 08/07/19 08/07/19 05:23 10:36 Temperature 98.4 F Pulse Rate 92 H Pulse Rate [ 80 Bilateral] Respiratory 18 Rate Respiratory 18 Rate [Bilateral ] Blood Pressure 130/74 O2 Sat by Pulse 100 Oximetry ED Medical Decision Making - Lab Data Result diagrams: 08/07/19 05:52 08/07/19 05:52 Lab Results 08/07/19 08/07/19 08/07/19 Range/Units 05:52 05:52 05:52 WBC (4.5-11.0) K/mm3 RBC (3.65-5.03) M/mm3 Hgb (10.1-14.3) gm/dl Hct (30.3-42.9) % MCV (79-97) fl MCH (28-32) pg MCHC (30-34) % RDW (13.2-15.2) % Plt Count (140-440) K/mm3 Lymph % (Auto) (13.4-35.0) % Waldo % (Auto) (0.0-7.3) % Eos % (Auto) (0.0-4.3) % Baso % (Auto) (0.0-1.8) % Lymph # (1.2-5.4) K/mm3 Waldo # (0.0-0.8) K/mm3 Eos # (0.0-0.4) K/mm3 Baso # (0.0-0.1) K/mm3 Seg Neutrophils % (40.0-70.0) % Seg Neutrophils # (1.8-7.7) K/mm3 Sodium 136 L (137-145) mmol/L Potassium 3.4 L (3.6-5.0) mmol/L Chloride 100.5 (98-107) mmol/L Carbon Dioxide 22 (22-30) mmol/L Anion Gap 17 mmol/L BUN 9 (7-17) mg/dL Creatinine 0.5 L (0.7-1.2) mg/dL Estimated GFR > 60 ml/min BUN/Creatinine Ratio 18 % Glucose 110 H (65-100) mg/dL Calcium 8.7 (8.4-10.2) mg/dL Urine Color (Yellow) Urine Turbidity (Clear) Urine pH (5.0-7.0) Ur Specific [place] (1.003-1.030) Urine Protein (Negative) mg/dL Urine Glucose (UA) (Negative) mg/dL Urine Ketones (Negative) mg/dL Urine Blood (Negative) Urine Nitrite (Negative) Urine Bilirubin (Negative) Urine Urobilinogen (<2.0) mg/dL Ur Leukocyte Esterase (Negative) Urine WBC (Auto) (0.0-6.0) /HPF Urine RBC (Auto) (0.0-6.0) /HPF U Epithel Cells (Auto) (0-13.0) /HPF Urine Bacteria (Auto) (Negative) /HPF Urine Mucus /HPF Salicylates < 0.3 L (2.8-20.0) mg/dL Acetaminophen < 5.0 L (10.0-30.0) ug/mL Plasma/Serum Alcohol (0-0.07) % 08/07/19 08/07/19 08/07/19 Range/Units 05:52 05:52 10:58 WBC 11.3 H (4.5-11.0) K/mm3 RBC 4.41 (3.65-5.03) M/mm3 Hgb 8.4 L (10.1-14.3) gm/dl Hct 27.1 L (30.3-42.9) % MCV 61 L (79-97) fl MCH 19 L (28-32) pg MCHC 31 (30-34) % RDW 20.6 H (13.2-15.2) % Plt Count 260 (140-440) K/mm3 Lymph % (Auto) 18.3 (13.4-35.0) % Waldo % (Auto) 4.9 (0.0-7.3) % Eos % (Auto) 1.0 (0.0-4.3) % Baso % (Auto) 0.2 (0.0-1.8) % Lymph # 2.1 (1.2-5.4) K/mm3 Waldo # 0.6 (0.0-0.8) K/mm3 Eos # 0.1 (0.0-0.4) K/mm3 Baso # 0.0 (0.0-0.1) K/mm3 Seg Neutrophils % 75.6 H (40.0-70.0) % Seg Neutrophils # 8.6 H (1.8-7.7) K/mm3 Sodium (137-145) mmol/L Potassium (3.6-5.0) mmol/L Chloride (98-107) mmol/L Carbon Dioxide (22-30) mmol/L Anion Gap mmol/L BUN (7-17) mg/dL Creatinine (0.7-1.2) mg/dL Estimated GFR ml/min BUN/Creatinine Ratio % Glucose (65-100) mg/dL Calcium (8.4-10.2) mg/dL Urine Color Yellow (Yellow) Urine Turbidity Clear (Clear) Urine pH 7.0 (5.0-7.0) Ur Specific [place] 1.024 (1.003-1.030) Urine Protein <15 mg/dl (Negative) mg/dL Urine Glucose (UA) Neg (Negative) mg/dL Urine Ketones Neg (Negative) mg/dL Urine Blood Neg (Negative) Urine Nitrite Neg (Negative) Urine Bilirubin Neg (Negative) Urine Urobilinogen 2.0 (<2.0) mg/dL Ur Leukocyte Esterase Neg (Negative) Urine WBC (Auto) 1.0 (0.0-6.0) /HPF Urine RBC (Auto) 2.0 (0.0-6.0) /HPF U Epithel Cells (Auto) 4.0 (0-13.0) /HPF Urine Bacteria (Auto) 1+ (Negative) /HPF Urine Mucus Few /HPF Salicylates (2.8-20.0) mg/dL Acetaminophen (10.0-30.0) ug/mL Plasma/Serum Alcohol < 0.01 (0-0.07) % - Medical Decision Making Patient seen and examined by mental health patient is not deemed a candidate for inpatient services for alcohol abuse. The patient will be referred to outpatient services for follow-up Critical care attestation.: If time is entered above; I have spent that time in minutes in the direct care of this critically ill patient, excluding procedure time. ED Disposition Clinical Impression: Abdominal pain during , Bedbug bite, Alcohol dependence Disposition: DC-01 TO HOME OR SELFCARE Is pt being admited?: No Does the pt Need Aspirin: No Condition: Stable Instructions: Abdominal Pain in (ED), Abuse of Alcohol (ED) Additional Instructions: Return if worse Referrals: PRIMARY CARE,MD [Primary Care Provider] - 3-5 Days [facility] [Provider Group] - 3-5 Days [facility] [Provider Group] - 3-5 Days Time of Disposition: 14:57
[2019-08-07 11:26] LABS: Bacteria,Urine 1+ /HPF (Negative); Bilirubin,Urine NEG (Negative); Blood,Urine NEG (Negative); Color,Urine Yellow (Yellow); Mucus,Urine FEW /HPF; Protein,Urine <15 mg/dL mg/dL (Negative)
[2019-08-07] MEDS ORDERED: PERMETHRIN 5% CREAM 60 GM TP ONE (15:33)
== END 2019-08-07 15:44 | disposition home or self-care (01) ==
LOC: ED 05:17
DX: O26.892 Other specified pregnancy related conditions, second trimester (principal); O99.512 Diseases of the respiratory system complicating pregnancy, second trimester; O99.322 Drug use complicating pregnancy, second trimester; O99.312 Alcohol use complicating pregnancy, second trimester; O99.332 Smoking (tobacco) complicating pregnancy, second trimester; S80.862A Insect bite (nonvenomous), left lower leg, initial encounter; S80.861A Insect bite (nonvenomous), right lower leg, initial encounter; S20.469A Insect bite (nonvenomous) of unspecified back wall of thorax, initial encounter; J45.909 Unspecified asthma, uncomplicated; R10.9 Unspecified abdominal pain; F14.10 Cocaine abuse, uncomplicated; Z3A.26 26 weeks gestation of pregnancy; Z79.899 Other long term (current) drug therapy; Z90.49 Acquired absence of other specified parts of digestive tract; W57.XXXA Bitten or stung by nonvenomous insect and other nonvenomous arthropods, initial encounter; Y93.89 Activity, other specified; Y92.89 Other specified places as the place of occurrence of the external cause; Y99.8 Other external cause status
CPT/HCPCS: 36415; 80048; 80320; 81001; 85025; 94640; 94644; G0480

== ENCOUNTER 2019-09-04 10:40 | Emergency (ER) | payer MEDICAID ==
[2019-09-04] MEDS ORDERED: SODIUM CHLORIDE 0.9% 1000 ML 2,000 ML ONE (10:45)
[2019-09-04] MEDS ORDERED: MORPHINE 4 MG/1 ML INJ ONE (10:45)
[2019-09-04] MEDS ORDERED: ONDANSETRON 4 MG/2 ML INJ ONE (10:46)
[2019-09-04] MEDS ORDERED: ONDANSETRON 4 MG/2 ML INJ IV ONE (10:48)
[2019-09-04] MEDS ORDERED: MORPHINE 2 MG/1 ML INJ IV ONE ×2 (10:48→11:05)
[2019-09-04] MEDS ORDERED: SODIUM CHLORIDE 0.9% 1000 ML 1,000 ML IV ONE (10:48)
[2019-09-04 10:53] LABS: Basophils % (Auto) 0.3 % (0.0-1.8); Eosinophils # (Auto) 0.1 K/mm3 (0.0-0.4); Eosinophils % (Auto) 0.7 % (0.0-4.3); Hematocrit 27.2 % (30.3-42.9); Hemoglobin 8.5 gm/dl (10.1-14.3); Lymphocytes # (Auto) 1.5 K/mm3 (1.2-5.4); Mean Corpuscular HGB Conc 31 % (30-34); Monocytes # (Auto) 0.6 K/mm3 (0.0-0.8); Monocytes % (Auto) 7.1 % (0.0-7.3); Platelet Count 211 K/mm3 (140-440); Red Blood Count 4.25 M/mm3 (3.65-5.03)
[2019-09-04 10:54] LABS: Mean Corpuscular Volume 64 fl (79-97); Red Cell Distribution Width 22.6 % (13.2-15.2)
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
[2019-09-04 11:07] LABS: BUN/Creatinine Ratio 18; Blood Urea Nitrogen 9 mg/dL (7-17); Calcium 8.4 mg/dL (8.4-10.2); Hemolysis Index 0
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
[2019-09-04] MEDS ORDERED: ceFAZolin/NS 1 GM/50 ML 1 GM/50 ML BAG IV ONE (11:46)
[2019-09-04 14:43] VITALS: BP 117/73
[2019-09-04] MEDS ORDERED: ACETAMINOPHEN 325 MG TAB PO ONE (15:06)
== END 2019-09-04 15:20 | disposition other institution (70) ==
LOC: ED 10:40
DX: O9A.213 Injury, poisoning and certain other consequences of external causes complicating pregnancy, third trimester (principal); S71.131A Puncture wound without foreign body, right thigh, initial encounter; O99.613 Diseases of the digestive system complicating pregnancy, third trimester; K21.9 Gastro-esophageal reflux disease without esophagitis; Z90.49 Acquired absence of other specified parts of digestive tract; Z79.899 Other long term (current) drug therapy; Z3A.28 28 weeks gestation of pregnancy
CPT/HCPCS: 36415; 73552; 80048; 85025; 96365; 96375; 96376; 99285; J0690; J2270; J2405; J7030

== ENCOUNTER 2019-09-21 03:13 | Inpatient (IN) | payer MEDICAID ==
[2019-09-21] MEDS ORDERED: LACTATED RINGERS 500 ML IV ONE (04:39)
[2019-09-21] MEDS ORDERED: fentaNYL 100 MCG/2 ML INJ IV ONE (04:46)
[2019-09-21] MEDS ORDERED: MAGNESIUM SULFATE 4 GM/100 ML BAG IV ONE ×2 (05:30→05:37)
[2019-09-21] MEDS ORDERED: AMPICILLIN/NS 2 GM/100 ML 2 GM/100 ML BAG IV ONE (05:32)
[2019-09-21] MEDS ORDERED: FAMOTIDINE 20 MG TAB ONE (05:36)
[2019-09-21] MEDS ORDERED: MAGNESIUM SULFATE 40GM/1000ML 40 GM/1,000 ML BAG IV ONE (05:36)
[2019-09-21] MEDS ORDERED: ACETAMINOPHEN 325 MG TAB PO ONE (05:57)
[2019-09-21] MEDS ORDERED: BETAMET ACET/BETAMET NA PH 6 MG/ML INJ 5 ML MDV IM ONE (06:09)
--- NOTE | 2019-09-21 06:09 | Ultrasound Report ---
ULTRASOUND OBSTETRIC INDICATION / CLINICAL INFORMATION: dates. labor Clinical Gestational Age (GA): Known TECHNIQUE: Transabdominal. COMPARISON: None available. FINDINGS: There is a single intrauterine . Biparietal Diameter = 8.1 cm = 32 weeks, 5 day(s). Head Circumference = 29.7 cm = 32 weeks, 6 day(s). Abdominal Circumference = 28.4 cm = 32 weeks, 3 day(s). Femur Length = 6.2 cm = 32 weeks, 0 day(s). Average Ultrasound Age (AUA) = 32 weeks, 4 day(s). Heart Rate: 143 beats per minute. Estimated Weight in grams (if calculated): 1958 g Estimated Weight Growth Percentile (if calculated): Not calculated Position: cephalic. Placenta: anterior and free of the os. Amniotic Fluid Volume: normal Amniotic Fluid Index (CHRIS) in cm (if calculated): 18.5 cm. IMPRESSION: 1. Single, living intrauterine with estimated sonographic age of 32 weeks, 4 day(s). 2. No significant sonographic abnormality. ULTRASOUND BIOPHYSICAL PROFILE / US OB BPP wo non-stress, US OB follow up INDICATION: dates. labor COMPARISON: None available. FINDINGS: Transabdominal ultrasound with Doppler interrogation. heart rate is 143 beats per minute. breathing movement = 2 Gross body movement = 2 tone = 2 Qualitative amniotic fluid volume = 2 IMPRESSION: biophysical profile = 02/15 Signer Name: Daisha Andres MD Signed: 09/21/2019 6:05 AM Workstation Name: [id number]
[2019-09-21 06:12] LABS: Alanine Aminotransferase 9 units/L (7-56); Albumin 3.8 g/dL (3.9-5); BUN/Creatinine Ratio 23; Blood Urea Nitrogen 9 mg/dL (7-17); Hemolysis Index 0
[2019-09-21] MEDS ORDERED: BETAMET ACET/BETAMET NA PH 6 MG/ML INJ 5 ML MDV IM SCH (06:15)
[2019-09-21] MEDS: MAGNESIUM SULFATE 40GM/1000ML 40 GM/1,000 ML BAG IV SCH (06:47)
[2019-09-21] MEDS ORDERED: AMPICILLIN/NS 1 GM/50 ML 1 GM/50 ML BAG IV ONE (10:00)
[2019-09-21 10:17] LABS: Amphetamine Screen,Urine PRESUMPTIVE NEGATIVE; Benzodiazepines Screen,Urine PRESUMPTIVE NEGATIVE; Cannabinoid Screen,Urine PRESUMPTIVE NEGATIVE; Methadone Screen,Urine PRESUMPTIVE NEGATIVE; Opiate Screen,Urine PRESUMPTIVE NEGATIVE
[2019-09-21] MEDS: HYDROcodone/ACETAMINOPHEN 5-325 MG TAB PO PRN ×2 (10:37→18:12)
[2019-09-21] MEDS: FAMOTIDINE 20 MG TAB PO SCH (10:37)
[2019-09-21 11:11] LABS: Cocaine Screen,Urine PRESUMPTIVE POSITIVE
[2019-09-21] MEDS: NEOMY 3.5 MG/BACIT 400 UNITS/POLY B 5000 UNITS/GM OINT PACKET TP SCH (14:56)
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
[2019-09-21 17:04] LABS: Hematocrit 24.6 % (30.3-42.9); Hemoglobin 7.6 gm/dl (10.1-14.3)
[2019-09-21] MEDS: LACTATED RINGERS 1,000 ML IV SCH (18:12)
[2019-09-22] MEDS: HYDROcodone/ACETAMINOPHEN 5-325 MG TAB PO PRN ×3 (00:48→19:56)
[2019-09-22] MEDS ORDERED: LIP THERAPY VASELINE TP PRN (02:03)
[2019-09-22] MEDS: MAGNESIUM SULFATE 40GM/1000ML 40 GM/1,000 ML BAG IV SCH (02:42)
[2019-09-22] MEDS: SIMETHICONE 80 MG CHEW TAB PO PRN ×2 (04:22→13:19)
[2019-09-22] MEDS: FAMOTIDINE 20 MG TAB PO SCH (09:21)
[2019-09-22] MEDS: FERROUS SULFATE 325 MG TAB PO SCH ×2 (09:21→23:09)
[2019-09-22] MEDS: PRENATAL VIT27-FE FUMARATE-FOLIC ACID VIT TAB PO SCH (09:21)
[2019-09-22] MEDS: DOCUSATE SODIUM 100 MG CAP PO SCH ×2 (09:23→23:09)
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
[2019-09-22] MEDS: LACTATED RINGERS 1,000 ML IV SCH (11:45)
[2019-09-22] MEDS: NEOMY 3.5 MG/BACIT 400 UNITS/POLY B 5000 UNITS/GM OINT PACKET TP SCH ×2 (13:22→22:53)
[2019-09-23] MEDS: LACTATED RINGERS 1,000 ML IV SCH (00:45)
[2019-09-23] MEDS: HYDROcodone/ACETAMINOPHEN 5-325 MG TAB PO PRN ×3 (01:50→20:47)
[2019-09-23] MEDS: FAMOTIDINE 20 MG TAB PO SCH (09:00)
[2019-09-23] MEDS: FERROUS SULFATE 325 MG TAB PO SCH ×2 (09:01→21:05)
[2019-09-23] MEDS: DOCUSATE SODIUM 100 MG CAP PO SCH ×2 (09:01→21:05)
[2019-09-23] MEDS: PRENATAL VIT27-FE FUMARATE-FOLIC ACID VIT TAB PO SCH (09:11)
[2019-09-23] MEDS: NEOMY 3.5 MG/BACIT 400 UNITS/POLY B 5000 UNITS/GM OINT PACKET TP SCH ×2 (11:15→21:01)
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
[2019-09-23] MEDS ORDERED: MAGNESIUM HYDROXIDE (MOM) ORAL LIQD UDC PO PRN (18:01)
[2019-09-24] MEDS: HYDROcodone/ACETAMINOPHEN 5-325 MG TAB PO PRN ×2 (05:28→14:46)
--- NOTE | 2019-09-24 06:37 | Event Note ---
Date: 09/23/19 Late entry. Pt was evaluated at 1200 on 09/23/19. Pt denies contractions after cessation of magnesium sulfate tocoloysis. No other obstetric complaints. FHTs Category I. SVE /-. Continue observation without tocolysis. Case management consult in the AM. Continue to monitor clinically.
[2019-09-24] MEDS: DOCUSATE SODIUM 100 MG CAP PO SCH (10:00)
[2019-09-24] MEDS: FERROUS SULFATE 325 MG TAB PO SCH (10:00)
[2019-09-24] MEDS ORDERED: SERTRALINE 25 MG TAB PO SCH (10:00)
[2019-09-24] MEDS: FAMOTIDINE 20 MG TAB PO SCH (10:01)
[2019-09-24] MEDS: PRENATAL VIT27-FE FUMARATE-FOLIC ACID VIT TAB PO SCH (10:01)
[2019-09-24] MEDS: NEOMY 3.5 MG/BACIT 400 UNITS/POLY B 5000 UNITS/GM OINT PACKET TP SCH (10:02)
[2019-09-24 10:12] VITALS: BP 108/55
--- NOTE | 2019-09-24 15:00 | Progress Note ---
Subjective - Reason for Consult Consult date: 09/24/19 Reason for consult: psychiatric assessment - Chief Complaint Chief complaint: ms smith is in bed aaox4, she is dressed appriopriately for the occasion, she maintain intermittent contact, she is able to make needs known. thre patient appears irritable alyson stated, " they sabotage my discgarge bstating that i cannot walk now bthe facility wont take me". The patient denies suicidal and homicidal ideation. She denies visual or auditory hallucinations. she reports that her depression is the same because of stress at this time from not getting into the detox facility.the patient can be follow on a out-patient basic. ROS: Constitutional: Negative for weight loss ENT: Negative for stridor Respiratory: Negative for cough or hemoptysis All other systems reviewed and are negative MENTAL STATUS General Appearance and Behavior: age appropriate, good eye contact, cooperative with questioning and polite Cooperation: Cooperative Psychomotor Behavior: within normal limits Mood: OK Affect and affective range: Congruent with stated mood Thought Process: Fluent/Logical and Goal-directed Thought Content: Within reality Speech: Normal volume and Regular rate and rhythm Intellectual Functioning Average Suicidal Ideation: Denies SI Homicidal Ideation: Denies HI Impulse Control: intact Insight and Judgment: normal insight and judgment Memory: Normal Attention: Normal Orientation: alert and oriented RECOMMENDATIONS MEDICATIONS continue medication on chart Risks, benefits and alternatives of medications discussed with the patient, questions answered and consent obtained from patient. PSYCHOTHERAPY: Supportive psychotherapy provided MEDICAL: Per primary team DELIRIUM PRECAUTIONS: Please re-orient patient frequently, keep lights on during the day, and minimize benzodiazepines and opiates as these medications could worsen patient's confusion. 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 LEGAL STATUS: voluntary FOLLOW-UP: sign-off Mental Status Exam - Vital signs Last Vital Signs Temp 98.4 F 09/23/19 19:55 Pulse 76 09/24/19 10:11 Resp 28 H 09/24/19 14:46 BP 108/55 09/24/19 10:11 Pulse Ox 84 09/24/19 00:58
== END 2019-09-24 13:55 | disposition left against medical advice (07) | DRG 781 ==
LOC: TRG 03:13 → LD 04:25
PROVIDERS: ADMIT Obstetrics & Gynecology; ATTEND Obstetrics & Gynecology
DX: O99.323 Drug use complicating pregnancy, third trimester (principal); O60.03 Preterm labor without delivery, third trimester; F14.90 Cocaine use, unspecified, uncomplicated; O34.13 Maternal care for benign tumor of corpus uteri, third trimester; O99.343 Other mental disorders complicating pregnancy, third trimester; F32.9 Major depressive disorder, single episode, unspecified; J45.909 Unspecified asthma, uncomplicated; Z3A.32 32 weeks gestation of pregnancy; O99.513 Diseases of the respiratory system complicating pregnancy, third trimester
CPT/HCPCS: 36415; 76816; 76819; 80053; 80307; 83735; 85014; 85018; 86850; 86900; 86901; G0378; A6250; J0290; J0702; J3010; J3475; J7120; Q0177

== ENCOUNTER 2019-10-11 23:37 | Outpatient (CLI) | payer MEDICAID ==
[2019-10-11 23:56] VITALS: BP 148/88
== END 2019-10-12 01:09 | disposition home or self-care (01) ==
LOC: TRG 23:37
PROVIDERS: ATTEND Obstetrics & Gynecology
DX: O47.03 False labor before 37 completed weeks of gestation, third trimester (principal); Z3A.35 35 weeks gestation of pregnancy
CPT/HCPCS: 59025

== ENCOUNTER 2019-10-20 17:24 | Inpatient (IN) | payer MEDICAID ==
[2019-10-20] MEDS ORDERED: LACTATED RINGERS 500 ML IV ONE (19:00)
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
[2019-10-20] MEDS ORDERED: TERBUTALINE 1 MG/1 ML INJ SUB-Q PRN (20:44)
[2019-10-20] MEDS ORDERED: ePHEDrine SULFATE 50 MG/1 ML INJ IV PRN (20:44)
[2019-10-20] MEDS ORDERED: BUTORPHANOL 2 MG/1 ML INJ IV PRN ×2 (20:44)
[2019-10-20] MEDS ORDERED: ONDANSETRON 4 MG/2 ML INJ IV PRN (20:44)
[2019-10-20] MEDS ORDERED: AMPICILLIN/NS 2 GM/100 ML 2 GM/100 ML BAG IV ONE (20:44)
[2019-10-20] MEDS ORDERED: MINERAL OIL 30 ML ORAL LIQD PO PRN (20:44)
[2019-10-20] MEDS ORDERED: TERBUTALINE 1 MG/1 ML INJ IVP PRN (20:44)
[2019-10-20] MEDS ORDERED: LIDOCAINE (2%) 20 MG/1 ML VIAL 20 ML MDV INFILTRATI ONE (20:44)
[2019-10-20] MEDS ORDERED: NALOXONE 0.4 MG/1 ML INJ IV PRN (20:44)
[2019-10-20] MEDS ORDERED: LACTATED RINGERS 1,000 ML IV SCH (21:00)
[2019-10-20] MEDS ORDERED: OXYTOCIN DRIP 30 UNITS/500 ML BAG IV SCH (21:00)
[2019-10-20] MEDS ORDERED: OXYTOCIN 20 UNIT/1000ML DRIP 20 UNITS/1,000 ML BAG IV SCH (21:00)
[2019-10-20] MEDS: fentaNYL 100 MCG/2 ML INJ IV PRN ×2 (21:21→23:55)
[2019-10-21 00:02] LABS: Hematocrit 27.9 % (30.3-42.9); Hemoglobin 8.7 gm/dl (10.1-14.3); Mean Corpuscular HGB Conc 31 % (30-34); Platelet Count 158 K/mm3 (140-440)
[2019-10-21 00:07] LABS: Mean Corpuscular Volume 65 fl (79-97); Red Cell Distribution Width 21.9 % (13.2-15.2)
[2019-10-21] MEDS ORDERED: AMPICILLIN/NS 1 GM/50 ML 1 GM/50 ML BAG IV SCH (00:47)
--- NOTE | 2019-10-21 01:09 | Event Note ---
Date: 10/21/19 Pt uncomfortable with contractions. Category I tracing. SVE: /-1. AROM- clear. Routine intrapartum care.
--- NOTE | 2019-10-21 02:59 | Procedure Note ---
OB Delivery Note - Delivery Date of Delivery: 10/21/19 Surgeon: KARLIE CAN Estimated blood loss: other (400 mL) - Vaginal Delivery presentation: vertex Delivery position: OA Intrapartum events: labor-<37 weeks, PROM->1hr before delivery Delivery induction: none Delivery augmentation: pitocin Delivery monitor: external FHT, external uterine Route of delivery: Delivery placenta: spontaneous Delivery cord: 3 umbilical vessels Episiotomy: none Delivery laceration: none Anesthesia: epidural - A at 1 minute: 8 at 5 minutes: 9 Gender: Female (2888g (6lb 5oz) @ 0238 am)
[2019-10-21] MEDS: fentaNYL 100 MCG/2 ML INJ IV PRN (03:09)
[2019-10-21] MEDS ORDERED: ONDANSETRON 4 MG/2 ML INJ IV PRN (04:29)
[2019-10-21] MEDS ORDERED: BENZOCAINE/MENTHOL 20/0.5% TOP SPRAY 56 GM TP PRN (04:29)
[2019-10-21] MEDS ORDERED: MAGNESIUM HYDROXIDE (MOM) ORAL LIQD UDC PO PRN (04:29)
[2019-10-21] MEDS ORDERED: WITCH HAZEL/ GLYCERIN PAD TP PRN (04:29)
[2019-10-21] MEDS ORDERED: PROMETHAZINE 25 MG RECT SUPP PR PRN (04:29)
[2019-10-21] MEDS ORDERED: LANOLIN/ZINC/DIMETHICONE (LANSINOH) 7 GM TP PRN ×2 (04:29)
[2019-10-21] MEDS ORDERED: diphenhydrAMINE 25 MG CAP PO PRN (04:29)
[2019-10-21] MEDS ORDERED: ACETAMINOPHEN 325 MG TAB PO PRN (04:29)
[2019-10-21] MEDS ORDERED: PROMETHAZINE 25 MG TAB PO PRN (04:29)
[2019-10-21] MEDS: HYDROcodone/ACETAMINOPHEN 5-325 MG TAB PO PRN ×4 (04:42→23:21)
[2019-10-21] MEDS: IBUPROFEN 800 MG TAB PO SCH ×3 (08:39→19:40)
[2019-10-21] MEDS: FERROUS SULFATE 325 MG TAB PO SCH (09:12)
[2019-10-21 10:41] LABS: Amphetamine Screen,Urine PRESUMPTIVE NEGATIVE; Benzodiazepines Screen,Urine PRESUMPTIVE NEGATIVE; Cocaine Screen,Urine PRESUMPTIVE NEGATIVE; Methadone Screen,Urine PRESUMPTIVE NEGATIVE; Opiate Screen,Urine PRESUMPTIVE NEGATIVE
[2019-10-21 11:08] LABS: Cannabinoid Screen,Urine PRESUMPTIVE POSITIVE
[2019-10-21] MEDS ORDERED: SIMETHICONE 80 MG CHEW TAB PO PRN (15:21)
[2019-10-21 15:54] LABS: Hematocrit 27.4 % (30.3-42.9); Hemoglobin 8.5 gm/dl (10.1-14.3)
[2019-10-21] MEDS: FLUCONAZOLE 200 MG TAB PO SCH (16:37)
[2019-10-21] MEDS: CETIRIZINE 10 MG TAB PO SCH (16:37)
[2019-10-21] MEDS: FAMOTIDINE 20 MG TAB PO SCH (16:37)
[2019-10-22] MEDS ORDERED: MEASLES, MUMPS & RUBELLA 12,500 UNIT/0.5 ML VACCINE SUB-Q ONE (03:00)
[2019-10-22] MEDS ORDERED: TETANUS,DIPH,PERTUSS(ACELL) VACCINE 0.5 ML SYRINGE IM ONE (06:00)
--- NOTE | 2019-10-22 08:04 | Progress Note ---
Assessment and Plan PPD1 s/p routine PP care may be discharged home Subjective - Subjective Date of service: 10/22/19 Principal diagnosis: s/p . hx of substance abuse Patient reports: appetite normal, voiding normally, pain well controlled, flatus, ambulating normally : doing well Objective - Vital Signs Latest vital signs: Vital Signs Temp Pulse Resp BP BP Pulse Ox 10/22/19 00:28 98.0 F 93 H 20 118/57 98 10/21/19 17:14 98.1 F 77 18 101/58 99 10/21/19 12:40 97.9 F 74 18 105/62 100 10/21/19 09:42 97.9 F 85 18 120/54 100 Intake and Output 10/21/19 10/22/19 10/22/19 23:59 07:59 15:59 Intake Total 360 480 Output Total 250 Balance 110 480 Intake: Oral 360 480 Output: Urine 250 Void 250 Other: Total, Intake Amount 240 240 Total, Output Amount 250 # Voids Void 2 1 - Exam Breasts: Present: normal Cardiovascular: Present: Regular rate, Normal S1 Lungs: Present: Clear to auscultation, Normal air movement Abdomen: Present: normal appearance, soft, normal bowel sounds. Absent: distention, tenderness, guarding Vulva: both: normal Uterus: Present: normal, fundal height below umbilicus. Absent: bogginess, tenderness Extremities: Present: normal Deep Tendon Reflex Grade: Normal +2 Incision: Present: normal, dry, intact - Labs Labs: Abnormal lab results 10/21/19 Range/Units 15:09 Hgb 8.5 L (10.1-14.3) gm/dl Hct 27.4 L (30.3-42.9) %
[2019-10-22] MEDS: CETIRIZINE 10 MG TAB PO SCH (09:08)
[2019-10-22] MEDS: FLUCONAZOLE 200 MG TAB PO SCH (09:08)
[2019-10-22] MEDS: FAMOTIDINE 20 MG TAB PO SCH (09:09)
[2019-10-22] MEDS: HYDROcodone/ACETAMINOPHEN 5-325 MG TAB PO PRN ×2 (09:11→19:48)
[2019-10-22] MEDS: FERROUS SULFATE 325 MG TAB PO SCH ×2 (09:19→21:25)
[2019-10-22] MEDS: IBUPROFEN 800 MG TAB PO SCH (16:58)
[2019-10-23] MEDS: IBUPROFEN 800 MG TAB PO SCH ×2 (01:32→09:21)
[2019-10-23] MEDS: HYDROcodone/ACETAMINOPHEN 5-325 MG TAB PO PRN ×3 (03:33→18:22)
--- NOTE | 2019-10-23 08:21 | Progress Note ---
Assessment and Plan PPD2 s/p routine PP care severe chronic anemia -home with iron d/c home today with f/u in 4 weeks Subjective - Subjective Date of service: 10/23/19 Principal diagnosis: s/p . hx of substance abuse Patient reports: appetite normal, voiding normally, pain well controlled, flatus, ambulating normally : doing well Objective - Vital Signs Latest vital signs: Vital Signs Temp Pulse Resp BP BP Pulse Ox 10/23/19 00:00 98.7 F 66 16 114/78 10/22/19 16:19 99.1 F 99 H 20 126/82 98 Intake and Output 10/22/19 10/23/19 10/23/19 23:59 07:59 15:59 Intake Total 700 200 Balance 700 200 Intake: Oral 700 200 Other: Total, Intake Amount 200 200 # Voids Void 1 - Exam Breasts: Present: normal Cardiovascular: Present: Regular rate, Normal S1 Lungs: Present: Clear to auscultation, Normal air movement Abdomen: Present: normal appearance, soft, normal bowel sounds. Absent: distention, tenderness, guarding Vulva: both: normal Uterus: Present: normal, firm, fundal height below umbilicus. Absent: bogginess, tenderness Extremities: Present: normal Deep Tendon Reflex Grade: Normal +2 Incision: Present: normal
--- NOTE | 2019-10-23 08:22 | Discharge Summary ---
Providers - Providers Date of Admission: 10/20/19 21:24 Date of discharge: 10/23/19 Attending physician: KARLIE CAN 10/21/19 09:18 Consult to Case Management [CONS] Routine Services Needed at Discharge: Burn Nurse Notified:: [id number] Phone number called:: [phone] Additional Physician Instructions: cocain use in . 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 PP did well. f/u in 4 weeks. viable female Condition at discharge: Good Disposition: DC-01 TO HOME OR SELFCARE Plan - Discharge Medications Prescriptions: Ferrous Sulfate [Feosol 325 MG tab] 325 mg PO BID #60 tablet Ibuprofen [Motrin] 800 mg PO Q8HR PRN #30 tablet PRN Reason: Pain, Moderate (4-6) HYDROcodone/APAP 5-325 [[place] 5/325] 1 each PO Q6HR PRN #20 tablet PRN Reason: Pain - Provider Discharge Summary Activity: routine, no sex for 6 weeks, no strenuous exercise Diet: routine Instructions: routine Additional instructions: [] Smoking cessation referral if applicable(refer to patient education folder for contact #) [] Refer to [facility] Booklet Call your doctor immediately for: * Fever > 100.5 * Heavy vaginal bleeding ( >1 pad per hour) * Severe persistent headache * Shortness of breath * Reddened, hot, painful area to leg or breast * Drainage or odor from incision. * Keep incision clean and dry at all times and follow doctor's instructions regarding bathing/showering - Follow up plan Follow up: DIPTI RUIZ MD [Primary Care Provider] - 11/19/19 Forms: [facility] Discharge Summary
[2019-10-23] MEDS: FLUCONAZOLE 200 MG TAB PO SCH (09:21)
[2019-10-23] MEDS: CETIRIZINE 10 MG TAB PO SCH (09:21)
[2019-10-23] MEDS: FAMOTIDINE 20 MG TAB PO SCH (09:21)
[2019-10-23] MEDS ORDERED: TUBERCULIN PPD 5 TUB UNIT/0.1 ML INJ ID SCH (11:00)
[2019-10-23] MEDS: FERROUS SULFATE 325 MG TAB PO SCH (11:55)
[2019-10-23 18:08] VITALS: BP 135/77
== END 2019-10-23 18:27 | disposition home or self-care (01) | DRG 775 ==
LOC: TRG 17:24 → EDSTATUS 17:39 → LD 20:08 → TRG 20:11 → LD 21:24 → OB 10-21 04:24
PROVIDERS: ADMIT Obstetrics & Gynecology; ATTEND Obstetrics & Gynecology
PROC: 10E0XZZ Delivery of Products of Conception, External Approach (ICD-10-PCS; principal; 2019-10-21)
PROC: 3E0R3BZ Introduction of Anesthetic Agent into Spinal Canal, Percutaneous Approach (ICD-10-PCS; 2019-10-21)
PROC: 00HU33Z Insertion of Infusion Device into Spinal Canal, Percutaneous Approach (ICD-10-PCS; 2019-10-21)
PROC: 3E0234Z Introduction of Serum, Toxoid and Vaccine into Muscle, Percutaneous Approach (ICD-10-PCS; 2019-10-22)
PROC: 3E0134Z Introduction of Serum, Toxoid and Vaccine into Subcutaneous Tissue, Percutaneous Approach (ICD-10-PCS; 2019-10-22)
DX: O99.324 Drug use complicating childbirth (principal); O60.14X0 Preterm labor third trimester with preterm delivery third trimester, not applicable or unspecified; O42.013 Preterm premature rupture of membranes, onset of labor within 24 hours of rupture, third trimester; O99.344 Other mental disorders complicating childbirth; F32.9 Major depressive disorder, single episode, unspecified; O62.0 Primary inadequate contractions; O90.81 Anemia of the puerperium; D64.89 Other specified anemias; F14.90 Cocaine use, unspecified, uncomplicated; Z3A.36 36 weeks gestation of pregnancy; Z37.0 Single live birth; Z23 Encounter for immunization; Z90.49 Acquired absence of other specified parts of digestive tract; Z91.040 Latex allergy status; Z91.010 Allergy to peanuts; Z91.018 Allergy to other foods
CPT/HCPCS: 36415; 80307; 85014; 85018; 85027; 86850; 86900; 86901; 88307; G0378; J0290; J2590; J3010; J7120

== ENCOUNTER 2020-07-15 17:59 | Emergency (ER) | payer MEDICAID ==
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
[2020-07-16 07:02] VITALS: BP 142/67
== END 2020-07-15 20:45 | disposition home or self-care (01) ==
LOC: ED 17:59
DX: S92.902A Unspecified fracture of left foot, initial encounter for closed fracture (principal); K21.9 Gastro-esophageal reflux disease without esophagitis; F17.200 Nicotine dependence, unspecified, uncomplicated; Z90.49 Acquired absence of other specified parts of digestive tract; Z91.040 Latex allergy status; Z91.010 Allergy to peanuts; Z91.018 Allergy to other foods; W34.09XA Accidental discharge from other specified firearms, initial encounter; Y93.89 Activity, other specified; Y92.89 Other specified places as the place of occurrence of the external cause; Y99.8 Other external cause status

== ENCOUNTER 2020-07-22 04:47 | Emergency (ER) | payer MEDICAID, OTHER ==
[2020-07-22 05:04] VITALS: BP 142/92
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
[2020-07-22] MEDS: ONDANSETRON 4 MG/2 ML INJ IV ONE (05:46)
[2020-07-22] MEDS: KETOROLAC 30 MG/1 ML INJ IV ONE (05:46)
[2020-07-22] MEDS: oxyCODONE /ACETAMINOPHEN 5-325MG TAB PO ONE (05:46)
[2020-07-22] MEDS: SULFAMETHOXAZOLE/TRIMETHOPRIM 800/160MG DS TAB PO ONE (05:46)
[2020-07-22 06:04] LABS: Basophils % (Auto) 0.4 % (0.0-1.8); Eosinophils % (Auto) 0.3 % (0.0-4.3); Hematocrit 36.3 % (30.3-42.9); Hemoglobin 11.7 gm/dl (10.1-14.3); Lymphocytes # (Auto) 1.3 K/mm3 (1.2-5.4); Lymphocytes % (Auto) 11.2 % (13.4-35.0); Mean Corpuscular HGB Conc 32 % (30-34); Monocytes # (Auto) 0.7 K/mm3 (0.0-0.8); Monocytes % (Auto) 6.1 % (0.0-7.3); Platelet Count 286 K/mm3 (140-440); Red Blood Count 5.28 M/mm3 (3.65-5.03); Red Cell Distribution Width 17.3 % (13.2-15.2)
[2020-07-22 06:06] LABS: Mean Corpuscular Volume 69 fl (79-97)
[2020-07-22 06:17] LABS: Alanine Aminotransferase 9 units/L (7-56); Albumin 4.6 g/dL (3.9-5); Blood Urea Nitrogen 10 mg/dL (7-17); Calcium 9.7 mg/dL (8.4-10.2); Hemolysis Index 0
[2020-07-22 06:18] LABS: BUN/Creatinine Ratio 17
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
== END 2020-07-22 07:15 | disposition home or self-care (01) ==
LOC: ED 04:47
DX: S91.332A Puncture wound without foreign body, left foot, initial encounter (principal); S92.322A Displaced fracture of second metatarsal bone, left foot, initial encounter for closed fracture; L03.116 Cellulitis of left lower limb; K21.9 Gastro-esophageal reflux disease without esophagitis; Z79.899 Other long term (current) drug therapy; Z91.040 Latex allergy status; Z91.010 Allergy to peanuts; Z91.018 Allergy to other foods; W34.09XA Accidental discharge from other specified firearms, initial encounter; Y93.89 Activity, other specified; Y92.89 Other specified places as the place of occurrence of the external cause; Y99.8 Other external cause status
CPT/HCPCS: 36415; 73630; 80053; 85025; 96365; 96375; 99284; J0690; J1885; J2405